=== PATIENT | male | born 1960 | race Caucasian/White ===

== ENCOUNTER 2018-02-26 21:30 | Emergency (ER) | payer BC ==
--- NOTE | 2018-02-26 22:10 | RAD ---
SINGLE VIEW OF THE CHEST: Comparison: 01-08-17 History: Anxiety, hyperventilation. Cough. FINDINGS: Single view of the chest shows a normal sized cardiomediastinal silhouette. The patient is status pos t sternotomy. There is no evidence of consolidation, mass, or pleural effusion. IMPRESSION: No evidence of acute cardiopulmonary disease. POS: [facility]
== END 2018-02-26 23:15 | disposition home or self-care (01) ==
LOC: ERS 21:30
DX: J20.9 Acute bronchitis, unspecified (principal); F43.9 Reaction to severe stress, unspecified
CPT/HCPCS: 71045; 93005; 94640; J7620

== ENCOUNTER 2019-04-29 05:57 | Observation (INO) | payer BC ==
[2019-04-26 09:29] VITALS: BMI 29.2
[2019-04-29 06:29] LABS: #Basophils 0.1 thou/uL (0.0-0.2); #Eosinphils 0.5 thou/uL (0.0-0.7); #Lymphocytes 1.4 thou/uL (1.20-3.40); #Monocytes 0.8 thou/uL (0.11-0.59); #Neutrophils 6.2 thou/uL (1.40-6.50); %Basophils 0.7 % (0.0-1.0); %Eosinophils 5.1 % (0.0-10.0); %Lymphocytes 15.8 % (21.0-51.0); %Neutrophils 69.4 % (42.0-75.0); Mean Corpuscular HGB CONC 34.3 g/dL (32.0-36.0); Mean Corpuscular Hemoglobin 29.2 pg (27.0-31.0); Mean Platelet Volume 8.7 fL (7.4-10.4); Platelet Count 214 thou/uL (130-400); RBC Distribution Width 12.4 % (11.5-14.5); Red Blood Cell (RBC) Count 4.44 mill/uL (4.70-6.10); White Blood Cell (WBC) Count 8.9 thou/uL (4.8-10.8)
[2019-04-29] MEDS ORDERED: Heparin 10,000 UNITS/1 ML VIAL ONE (06:31)
[2019-04-29] MEDS ORDERED: Lidocaine 1% (PF) 30 ML VIAL ONE (06:31)
[2019-04-29 06:51] LABS: ALT (SGPT) 34 U/L (8-55); AST (SGOT) 23 U/L (5-34); Alkaline Phosphatase 84 U/L (40-110); Anion Gap 13 mmol/L (10-20); BUN (Urea Nitrogen) 15 mg/dL (8.4-25.7); Bilirubin, Total 0.3 mg/dL (0.2-1.2); Calc. Creatinine Clearance 86 mL/min (70-130); Calcium 9.4 mg/dL (7.8-10.44); Carbon Dioxide 25 mmol/L (22-29); Cardiac Risk 3.9 (Less than 4.5); Chloride 105 mmol/L (98-107); Cholesterol 150 mg/dl (< 200 Desired); Estimated GFR-MDRD 60; Globulin 2.9 g/dL (2.4-3.5); Glucose 202 mg/dL (70-105); HDL Cholesterol 38 mg/dL (>60 Neg Risk); LDL Cholesterol, Calculated 82 mg/dL; Potassium 4.5 mmol/L (3.5-5.1); Protein, Total 6.9 g/dL (6.0-8.3); Sodium 138 mmol/L (136-145); Triglycerides 150 mg/dL (Less than 150)
[2019-04-29] MEDS ORDERED: Fentanyl 100 MCG/2 ML VIAL ONE (07:01)
[2019-04-29] MEDS ORDERED: Midazolam HCl 2 mg/2 ml Vial ONE ×2 (07:01→11:02)
[2019-04-29] MEDS ORDERED: hydrALAZINE 20 MG/ML VIAL ONE ×3 (07:48→15:07)
[2019-04-29] MEDS ORDERED: Protamine Sulfate 50 MG/5 ML VIAL ONE (07:48)
[2019-04-29] MEDS ORDERED: Sodium Chloride 0.9% 200 ML IV PRN (08:13)
[2019-04-29] MEDS ORDERED: Sodium Chloride 0.9% 1,000 ML IV SCH (08:15)
--- NOTE | 2019-04-29 08:41 | RAD ---
CHEST 1 VIEW: HISTORY: Pre-heart cath evaluation. COMPARISON: 02/26/2018. FINDINGS: Postop midline sternotomy. Stable increased markings in the infrahilar regions. No confluent pneumo gregory, overt edema, or pleural effusion. IMPRESSION: Stable chronic changes in the infrahilar regions and left costophrenic angle from prior exam. No new process. POS: [facility]
[2019-04-29] MEDS ORDERED: Iopamidol 370 76% 100 ML VIAL ONE (09:01)
[2019-04-29] MEDS ORDERED: PROVENTIL INHALER 6.7 G (200 INHALATIONS) INH PRN (09:21)
[2019-04-29] MEDS ORDERED: TRULICITY 0.75 MG SC SCH (09:30)
[2019-04-29] MEDS ORDERED: Metoprolol Tartrate 5 MG/5 ML VIAL ONE (09:34)
[2019-04-29] MEDS ORDERED: Meloxicam 15 MG TAB PO SCH (10:00)
[2019-04-29] MEDS ORDERED: cloNIDine 0.1 MG TAB ONE (16:01)
--- NOTE | 2019-04-29 16:27 | EKG ---
Test Reason : PREOP Blood Pressure : / mmHG Vent. Rate : 077 BPM Atrial Rate : 077 BPM P-R Int : 128 ms QRS Dur : 096 ms QT Int : 408 ms P-R-T Axes : 061 047 049 degrees QTc Int : 461 ms Normal sinus rhythm Minimal voltage criteria for LVH, may be normal variant Nonspecific T wave abnormality Prolonged QT Abnormal ECG When compared with ECG of 26-FEB-2018 21:40, Nonspecific T wave abnormality no longer evident in Anterior leads Confirmed by DR. Percy GARCIA ([id number]) on 04/29/2019 4:27:28 PM Referred By: M[place] Confirmed By:DR. Percy GARCIA
[2019-04-29] MEDS ORDERED: cloNIDine 0.1 MG TAB PO PRN (17:34)
[2019-04-29] MEDS ORDERED: hydrALAZINE 20 MG/ML VIAL SLOW IVP SCH (17:45)
[2019-04-29] MEDS ORDERED: Mometasone/Formoterol 120 PUFF INHALER INH SCH (18:30)
[2019-04-29] MEDS: Sodium Chloride 0.9% 1,000 ML IV SCH (20:01)
[2019-04-29] MEDS: HYDROcodone/Acetaminophen 5/325 mg Tablet PO PRN (20:02)
[2019-04-29] MEDS: glipiZIDE 10 MG TAB PO SCH (20:03)
[2019-04-29] MEDS ORDERED: Atorvastatin Calcium 40 MG TAB PO SCH (21:00)
[2019-04-29] MEDS ORDERED: ADDERALL 30 MG PO SCH (21:00)
[2019-04-29] MEDS ORDERED: busPIRone HCl 5 MG TAB PO PRN (21:17)
[2019-04-30] MEDS: HYDROcodone/Acetaminophen 5/325 mg Tablet PO PRN (00:14)
[2019-04-30 03:32] VITALS: TEMP 99.5
[2019-04-30 05:14] LABS: Anion Gap 11 mmol/L (10-20); BUN (Urea Nitrogen) 16 mg/dL (8.4-25.7); Calc. Creatinine Clearance 93 mL/min (70-130); Calcium 8.6 mg/dL (7.8-10.44); Carbon Dioxide 26 mmol/L (22-29); Chloride 104 mmol/L (98-107); Estimated GFR-MDRD 66; Glucose 165 mg/dL (70-105); Sodium 137 mmol/L (136-145)
[2019-04-30] MEDS: Sodium Chloride 0.9% 1,000 ML IV SCH (06:46)
[2019-04-30] MEDS ORDERED: Aspirin Chewable 81 MG TAB PO SCH (09:00)
[2019-04-30] MEDS ORDERED: Meloxicam 15 MG TAB PO SCH (09:00)
[2019-04-30] MEDS: glipiZIDE 10 MG TAB PO SCH (09:21)
[2019-04-30 10:10] VITALS: BP 144/66
--- NOTE | 2019-05-01 03:14 | DIS ---
DATE OF ADMISSION: 04/29/2019 DATE OF DISCHARGE: 04/30/2019 DISCHARGE DIAGNOSES: 1. Progression of shoshone-paiute disease, especially in the circumflex. 2. Status post coronary artery bypass graft x3 with grafts patent. 3. Status post stent placement in the right coronary artery graft in August 2014, continued patent. 4. History of [id number] myocardial infarction. 5. Hypertension, poorly controlled, with metoprolol increased. 6. Hypercholesterolemia, poorly controlled, with atorvastatin recently increased from 40 to 80. 7. Former smoker, 1 pack per day, stopped 1 month ago. 8. Diabetes mellitus. 9. Noncompliance with medical regimen - not taking aspirin multiple times in the past. 10. Chronic kidney disease - creatinine 1.73, 11 days prior to catheterization; 1.23 on the day of catheterization; and 1.14 the day after the catheterization. DISCHARGE DISPOSITION: The patient will be seen in 2 months with comprehensive metabolic panel and fasting lipid profile. DISCHARGE MEDICATIONS: 1. Metoprolol 100 mg 1-1/2 tablets q.a.m. 2. Albuterol 1 puff q.4 hours p.r.n. 3. Aspirin 81 daily. 4. Atorvastatin 80 mg at bedtime. 5. BuSpar 5 mg b.i.d. p.r.n. 6. Glucotrol 10 mg b.i.d. 7. Hydrocodone p.r.n. 8. Meloxicam 15 mg daily. 9. Protonix 40 mg daily. 10. Dulera 2 puffs b.i.d. 11. Adderall XR 30 mg b.i.d. 12. Trulicity 0.75 mg subcu q.7 days. HOSPITAL COURSE: Mr. Souza had been having increased chest discomfort and had a fixed inferior wall defect on cardiolite scan. He underwent cardiac catheterization, which revealed moderate inferobasal hypokinesis with ejection fraction of 45% to 50%. The left main was normal. The LAD had a 70% proximal stenosis and a 90% mid stenosis. The circumflex had a 90% proximal stenosis and a 90% and 100% mid stenosis. Right coronary artery was totally occluded proximally. Bypass grafts revealed patent COMER to the LAD and patent obtuse marginal graft. The graft to the right coronary artery had a 30% stenosis just proximal to the stent. Due to creatinine of 1.73, 11 days prior to catheterization, he was hydrated overnight with creatinine results as noted above. His metoprolol dose was increased due to elevated pressures. If he continues to have episodes of chest discomfort , consideration should be given to Ranexa since he has significant headaches with nitrates. Job ID: [id number] [facility]TDD
== END 2019-04-30 10:58 | disposition home or self-care (01) ==
LOC: CCL 05:57 → 2SW 08:13
PROVIDERS: ADMIT Internal Medicine Cardiovascular Disease; ATTEND Internal Medicine Cardiovascular Disease
PROC: 4A023N7 Measurement of Cardiac Sampling and Pressure, Left Heart, Percutaneous Approach (ICD-10-PCS; principal; 2019-04-29)
PROC: B2111ZZ Fluoroscopy of Multiple Coronary Arteries using Low Osmolar Contrast (ICD-10-PCS; 2019-04-29)
PROC: B2131ZZ Fluoroscopy of Multiple Coronary Artery Bypass Grafts using Low Osmolar Contrast (ICD-10-PCS; 2019-04-29)
PROC: B2181ZZ Fluoroscopy of Left Internal Mammary Bypass Graft using Low Osmolar Contrast (ICD-10-PCS; 2019-04-29)
DX: I25.10 Atherosclerotic heart disease of native coronary artery without angina pectoris (principal); I25.82 Chronic total occlusion of coronary artery; I25.2 Old myocardial infarction; K21.9 Gastro-esophageal reflux disease without esophagitis; F31.9 Bipolar disorder, unspecified; E78.5 Hyperlipidemia, unspecified; E78.00 Pure hypercholesterolemia, unspecified; J44.9 Chronic obstructive pulmonary disease, unspecified; F17.210 Nicotine dependence, cigarettes, uncomplicated; I12.9 Hypertensive chronic kidney disease with stage 1 through stage 4 chronic kidney disease, or unspecified chronic kidney disease; E11.22 Type 2 diabetes mellitus with diabetic chronic kidney disease; N18.3 Chronic kidney disease, stage 3 (moderate); E66.09 Other obesity due to excess calories; Z68.29 Body mass index [BMI] 29.0-29.9, adult; Z91.14 Patient's other noncompliance with medication regimen; Z79.1 Long term (current) use of non-steroidal anti-inflammatories (NSAID); Z79.82 Long term (current) use of aspirin; Z79.84 Long term (current) use of oral hypoglycemic drugs; Z79.899 Other long term (current) drug therapy; Z88.5 Allergy status to narcotic agent; Z88.8 Allergy status to other drugs, medicaments and biological substances; Z95.1 Presence of aortocoronary bypass graft; Z95.5 Presence of coronary angioplasty implant and graft
CPT/HCPCS: 36415; 71045; 80048; 80053; 80061; 85025; 85347; 93005; 93010; 93459; 94760; 96360; 96361; 99152; 99153; C1769; G0378; J0360; J1644; J2001; J2250; J2720; J3010; Q9967

== ENCOUNTER 2019-07-24 11:26 | Inpatient (IN) | payer BC ==
[2019-07-24] MEDS ORDERED: Morphine 4 MG/ML VIAL ONE (11:53)
[2019-07-24 12:07] LABS: #Eosinphils 0.3 thou/uL (0.0-0.7); #Lymphocytes 1.7 thou/uL (1.20-3.40); #Monocytes 0.7 thou/uL (0.11-0.59); #Neutrophils 6.1 thou/uL (1.40-6.50); %Basophils 0.6 % (0.0-1.0); %Eosinophils 3.2 % (0.0-10.0); %Lymphocytes 19.3 % (21.0-51.0); %Neutrophils 68.9 % (42.0-75.0); Mean Corpuscular HGB CONC 33.6 g/dL (32.0-36.0); Mean Corpuscular Hemoglobin 28.7 pg (27.0-31.0); Mean Corpuscular Volume 85.6 fL (78.0-98.0); Mean Platelet Volume 8.8 fL (7.4-10.4); Platelet Count 258 thou/uL (130-400); RBC Distribution Width 12.8 % (11.5-14.5); Red Blood Cell (RBC) Count 4.53 mill/uL (4.70-6.10); White Blood Cell (WBC) Count 8.8 thou/uL (4.8-10.8)
--- NOTE | 2019-07-24 12:15 | RAD ---
CHEST 1 VIEW: Date: 07/24/2019 HISTORY: Chest pain. COMPARISON: Radiograph dated 04/29/2019. FINDINGS: There is some scarring in the left lung base, similar. No confluent air space consolidation, pneumoth orax, or effusion. Multiple midline sternotomy wires. No acute osseous abnormality. IMPRESSION: No acute intrathoracic abnormality. POS: [facility]
[2019-07-24 12:28] LABS: ALT (SGPT) 22 U/L (8-55); AST (SGOT) 55 U/L (5-34); Alkaline Phosphatase 108 U/L (40-110); Anion Gap 14 mmol/L (10-20); BUN (Urea Nitrogen) 25 mg/dL (8.4-25.7); Bilirubin, Total 0.3 mg/dL (0.2-1.2); Calc. Creatinine Clearance 0 mL/min (70-130); Carbon Dioxide 25 mmol/L (22-29); Chloride 102 mmol/L (98-107); Estimated GFR-MDRD 46; Globulin 3.1 g/dL (2.4-3.5); Glucose 265 mg/dL (70-105); Lipase 61 U/L (8-78); Potassium 4.8 mmol/L (3.5-5.1); Protein, Total 7.1 g/dL (6.0-8.3); Sodium 136 mmol/L (136-145)
[2019-07-24] MEDS ORDERED: Enoxaparin Sodium 60 MG/0.6 ML SYRINGE ONE (13:01)
[2019-07-24] MEDS ORDERED: Enoxaparin Sodium 30 MG/0.3 ML SYRINGE ONE (13:01)
[2019-07-24] MEDS ORDERED: Aspirin Chewable 81 MG TAB ONE (13:01)
[2019-07-24 13:07] LABS: CKMB 59.6 ng/mL (0-6.6)
[2019-07-24] MEDS ORDERED: Nitroglycerin 0.4 MG TAB (25 Tab Bottle) SL PRN (13:11)
[2019-07-24 13:50] LABS: Hemoglobin 13.2 g/dL (14.0-18.0); Platelet Count 245 thou/uL (130-400)
[2019-07-24 15:04] LABS: Troponin I 9.131 ng/mL (< 0.028)
[2019-07-24 16:29] VITALS: BMI 29.0
[2019-07-24] MEDS: Morphine 2 MG/ML SYRINGE SLOW IVP PRN ×7 (16:48→23:13)
[2019-07-24] MEDS: Heparin 25,000 units/D5W 500 ML IVPB SCH (17:37)
[2019-07-24] MEDS: Heparin 10,000 UNITS/ 10 ML VIAL SLOW IVP SCH (17:37)
[2019-07-24 18:26] LABS: Troponin I 13.121 ng/mL (< 0.028)
[2019-07-24] MEDS ORDERED: Clopidogrel Bisulfate 300 MG TAB PO SCH (19:45)
[2019-07-24] MEDS: Atorvastatin Calcium 40 MG TAB PO SCH (20:37)
[2019-07-24] MEDS: Metoprolol Tartrate 25 MG TAB PO SCH (20:37)
[2019-07-25] MEDS: Heparin 10,000 UNITS/ 10 ML VIAL SLOW IVP SCH (00:43)
--- NOTE | 2019-07-25 01:56 | HP ---
CHIEF COMPLAINT: Chest pain. HISTORY OF PRESENT ILLNESS: The patient is a 59-year-old male with past medical history of coronary artery disease, status post stenting and CABG, hyperlipidemia, and hypertension, who presented to the hospital with complaints of left-sided severe chest pain radiating to his neck and both shoulders that started 2 days ago and resolved spontaneously before returning again today. The patient stated that his pain is severe and persistent and associated with some shortness of breath. Denies nausea or vomiting. In the ER, EKG did not show any ST elevations, but the initial troponin was found to be elevated at 5, subsequent troponins continue to trend up. The patient was then admitted to the hospital for management of N-STEMI. REVIEW OF SYSTEMS: Negative except as noted in HPI. PAST MEDICAL HISTORY: As noted above. PAST SURGICAL HISTORY: Appendectomy, stent placement, CABG, back surgeries. SOCIAL HISTORY: The patient denies alcohol use, illicit drug use, but he is an every day smoker. FAMILY HISTORY: Noncontributory. PHYSICAL EXAMINATION: GENERAL: The patient is alert and oriented. Appears to be in distress due to pain. HEENT: Head is normocephalic and atraumatic. Extraocular muscles are intact. NECK: Supple. CHEST: Clear to auscultation bilaterally. CARDIOVASCULAR: Revealed normal S1, normal S2. Regular rate and rhythm. No murmurs, rubs, or gallops. ABDOMEN: Soft, nontender, nondistended. Bowel sounds are audible. NEUROLOGIC: Revealed normal cranial nerves 2 through 12 and normal sensory and muscle examination. ASSESSMENT: 1. Non-ST elevation myocardial infarction. 2. Hypertension. 3. Hyperlipidemia. 4. History of smoking. 5. History of emphysema. 6. The patient will be admitted to telemetry. 7. He was given high-dose aspirin in the ER. This will be continued. 8. High-intensity statin will be initiated. 9. Metoprolol 25 mg orally twice daily. 10. Morphine 2 mg IV as needed for pain. 11. The patient is refusing nitroglycerin. 12. Heparin drip per ACS protocol. 13. Cardiology consultation. 14. Plavix is not being initiated at this time in case the patient will require surgery. Job ID: [id number]
--- NOTE | 2019-07-25 02:08 | CON ---
DATE OF CONSULTATION: HISTORY OF PRESENT ILLNESS: Harley Menjivar is a 59-year-old white male, I have followed him since March 2004. In July 2001, he had a "massive heart attack." He was treated at [facility] in [place]. Apparently, a stent was placed. He was relatively pain free until March 2004 when he started to have pain on the upper left side of his chest that radiated to his left shoulder and across the upper part of his chest and somewhat down to his right arm into his back. The pain would occur at rest or with exertion. He typically notice this if he is carrying something such as 2 x 4s. The pain would last 15 to 20 minutes. He had an episode that lasted for 30 minutes and went to the hospital in [facility]. Serial EKGs and cardiac enzymes were unremarkable. This was over the weekend and he was instructed to stay until the following Monday for treadmill test. However, he decided he did not wish to stay. He then again had a more intense episode and came to the emergency room at [facility]. He underwent left heart catheterization, which revealed severe inferobasal hypokinesis with global hypokinesis and an ejection fraction of 35% to 40%. The left main was normal. The LAD had a 99% proximal stenosis. The circumflex had a 99% mid stenosis. The right coronary artery had a proximal to mid stent, which had no restenosis. Just distal to the stent, there was a 60% to 70 % stenosis. It was recommended that he undergo CABG. On April 06, 2004, he underwent CABG x3 with COMER to the LAD, saphenous vein graft to the obtuse marginal and to the right coronary artery by Dr. Gutiérrez. He was extubated on the table and kept in intensive care one additional day. Approximately six weeks later, he was seen in the office. An echocardiogram at that time revealed ejection fraction of 40% to 45%. He was supposed to come back for followup 1 year later; however, he was not seen again until September 2007. He has been having chest discomfort for 3 to 4 days and was seen in the emergency room by Dr. Guerra. Echo revealed ejection fraction of 55% to 60% with mild tricuspid regurgitation and some element of diastolic dysfunction. He underwent adenosine stress test, which was suboptimal because of significant patient motion. However, there was no evidence of reversible ischemia identified. He was supposed to follow up one month after that discharge in September 2007. However, he was not seen again until May 2008 when he presented to the emergency room with complaints of chest pain that started the day before. It was recommended that he undergo Cardiolite treadmill testing; however, he signed out AMA. He returned in September 2008, complaining of chest discomfort for 1 week. He underwent cardiac catheterization and bypass grafts were patent and there was no significant change in his anatomy. He had been noncompliant with his medications and those were restarted. In August 2011, he returned with sharp chest pain. He underwent repeat catheterization, which again showed the grafts to be patent. He was not seen again until August 2014. He had left chest pressure with multiple recurrent episodes. Cardiac enzymes were unremarkable. He underwent cardiac catheterization, which revealed moderate inferobasal mild anterior hypokinesis with ejection fraction of 45% to 50%. The left main was normal. The LAD had an 80% to 90% proximal stenosis. The circumflex was totally occluded in its midportion. The right coronary artery was totally occluded in its midportion. Bypass grafts revealed patent COMER to the LAD and patent saphenous vein graft to the obtuse marginal. The right coronary artery graft had a 90% stenosis. He underwent placement of a Multi-Link Ultra 5.0 x 38 mm stent with the use of a filter wire. Large amount of atheromatous material was removed from the filter. He was seen in the office twice until December 2014 and I did not see him from that time until October 2018. He stated that at rest he would get tightness in his chest that would last for few minutes and he gets that several times per month. It was recommended that he undergo Lexiscan Cardiolite testing; however, he never did return to have that performed. He was referred by Dr. Tereso Hills again in March 2019. Ten days prior to that, he woke at 3:00 a.m. with his heart beating rapidly, but did not have any chest discomfort. He then agreed to undergo Lexiscan Cardiolite testing. This revealed fixed proximal inferior wall defect. There was a question whether this was restenosis or due to closure of the right coronary artery graft. He then underwent cardiac catheterization on April 29, 2019. This revealed moderate inferobasal hypokinesis with ejection fraction of 45% to 50%. The left main was normal. There was a 70% proximal LAD, 90% mid LAD. There was a new 90 % proximal circumflex lesion, which was a smaller vessel. There was a 90% mid circumflex and total occlusion in the mid circumflex. The right coronary artery was totally occluded in its midportion and had a previous stent in it. Bypass grafts revealed patent COMER to the LAD, vein graft to the distal obtuse marginal. The right coronary graft had a 30% stenosis proximal to the stent, but the stented area continued to show good results. His metoprolol was increased. Mr. Menjivar has been very noncompliant in the past, especially with the aspirin regimen and he continues to smoke. However, he states that he has been taking his medications recently. On July 18, he had 6 to 7 hours of continual chest discomfort that then resolved. He did not have any further problems until last night at 7:00 p.m., when he again had onset of chest discomfort, but no nausea, vomiting, or shortness of breath. The discomfort pretty much lasted approximately 24 hours. He does not have a pleuritic component to the pain. At the present time, he is on intravenous heparin. PAST MEDICAL HISTORY: Myocardial infarction in July 2001, hyperlipidemia, COPD, noncompliance, drug-seeking behavior, bipolar disorder, ADHD, depression, diabetes, and history of Lyme disease. PAST SURGICAL HISTORY: Operations; CABG, placement chest tube post CABG for left pneumothorax. MEDICATIONS: 1. Symbicort two puffs b.i.d. 2. ProAir one puff p.r.n. 3. Aspirin 81 daily. 4. Atorvastatin 80 at bedtime. 5. Buspirone 5 mg b.i.d. 6. Trulicity 0.75 every seven days. 7. Glucotrol 10 mg b.i.d. 8. Mobic 15 mg daily. 9. [place]. 10. Metoprolol 200 mg daily. 11. Protonix 40 daily. ALLERGIES: NITRATES CAUSES INTENSE HEADACHES AND CODEINE. SOCIAL HISTORY: He continues to smoke 1 pack per day. He does not drink. FAMILY HISTORY: Negative for coronary artery disease. REVIEW OF SYSTEMS: A 10-point review of systems is otherwise unremarkable. PHYSICAL EXAMINATION: VITAL SIGNS: Blood pressure 179/88, pulse of 83. HEENT: PERRL. NECK: Supple. CHEST: Clear. CARDIAC: S1 and S2 normal without any S3, S4, or murmurs. ABDOMEN: Normal bowel sounds without tenderness or organomegaly. EXTREMITIES: Revealed no clubbing, cyanosis, or edema. NEUROLOGIC: Grossly intact. SKIN: Warm and dry. LABORATORY DATA: EKG reveals normal sinus rhythm without any acute changes. Hemoglobin 13.0, hematocrit 38.7, white count 8800, platelets 258,000. Sodium 136, potassium 4.8, chloride 102, carbon dioxide 25, BUN 25, creatinine 1.56, CK-MB 59.6, troponin I 13.121. IMPRESSION: 1. Rla-II-[id number] myocardial infarction. From review of his catheterization from three months ago, this is probably due to closure of the 90% proximal circumflex lesion that really was too small to intervene. 2. Status post CABG x3 with the grafts patent three months ago. 3. Status post stent placement in the right coronary artery graft in August 2014. 4. Status post CABG x3 in April 2004. 5. History of myocardial infarction in July 2001. 6. Pneumothorax with chest tube placement, post CABG. 7. Hypertension. 8. Diabetes. 9. Hyperlipidemia, under poor control. 10. Depression. 11. Bipolar disorder. 12. Drug-seeking behavior. 13. Chronic obstructive pulmonary disease. 14. History of noncompliance. At times, he may not take his aspirin for months. 15. Smoker - one pack per day. RECOMMENDATIONS: In review of his cath film from three months ago, I do not feel that he needs repeat catheterization at this time. There are multiple small vessels that could have closed, but are too small for intervention and too diffusely diseased. The most likely closure would be his 90% proximal circumflex lesion. He should be treated medically and will be loaded with Plavix. Also, he will be started on Ranexa. We discussed the need to stop smoking; however, he has continued to smoke for the last 15 years and it is doubtful that he will stop. Job ID: [id number] [facility]
[2019-07-25] MEDS: Morphine 2 MG/ML SYRINGE SLOW IVP PRN ×8 (02:33→20:44)
[2019-07-25] MEDS ORDERED: Albuterol 200 PUFF (6.7GM INHALER) INH PRN (06:06)
[2019-07-25] MEDS: Mometasone 200 MCG/Formoterol 5 MCG 120 PUFF INHALER INH SCH ×2 (06:57→19:30)
[2019-07-25 07:21] LABS: Anion Gap 13 mmol/L (10-20); BUN (Urea Nitrogen) 17 mg/dL (8.4-25.7); Calc. Creatinine Clearance 85 mL/min (70-130); Calcium 9.1 mg/dL (7.8-10.44); Carbon Dioxide 29 mmol/L (22-29); Cardiac Risk 4.5 (Less than 4.5); Chloride 98 mmol/L (98-107); Cholesterol 143 mg/dl (< 200 Desired); Estimated GFR-MDRD 60; Glucose 238 mg/dL (70-105); HDL Cholesterol 32 mg/dL (>60 Neg Risk); LDL Cholesterol, Calculated 81 mg/dL; Potassium 4.6 mmol/L (3.5-5.1); Sodium 135 mmol/L (136-145); Triglycerides 149 mg/dL (Less than 150)
[2019-07-25 07:23] LABS: Hemoglobin 13.1 g/dL (14.0-18.0); Mean Corpuscular HGB CONC 33.5 g/dL (32.0-36.0); Mean Corpuscular Hemoglobin 28.7 pg (27.0-31.0); Mean Corpuscular Volume 85.7 fL (78.0-98.0); Mean Platelet Volume 8.6 fL (7.4-10.4); Platelet Count 230 thou/uL (130-400); RBC Distribution Width 12.9 % (11.5-14.5); Red Blood Cell (RBC) Count 4.56 mill/uL (4.70-6.10); White Blood Cell (WBC) Count 8.5 thou/uL (4.8-10.8)
[2019-07-25 07:24] LABS: Band 1 % (5-11); Eosinophils 3 % (0-10); Lymphocytes 19 % (21-51); MDiff Complete? YES; Monocytes 9 % (0-10); Neutrophil 67 % (42-75); Platelet Morphology Comment Appears Adequate; RBC Morphology Normal
[2019-07-25] MEDS: Metoprolol Tartrate 25 MG TAB PO SCH (08:37)
[2019-07-25] MEDS: Aspirin 325 MG TAB PO SCH (08:37)
[2019-07-25] MEDS: Clopidogrel Bisulfate 75 MG TAB PO SCH (08:37)
[2019-07-25] MEDS ORDERED: Metoprolol Tartrate 50 MG TAB PO SCH (09:30)
--- NOTE | 2019-07-25 12:09 | PDOC.HOSPP ---
- Subjective Encounter Date: 07/25/19 Subjective: Complains of intermittent Chest pain. - Objective Vital Signs & Weight: Vital Signs (12 hours) Temp Pulse Pulse Pulse Resp BP BP 07/25/19 09:15 62 69 132/79 189/85 H 07/25/19 07:31 98.0 F 64 17 07/25/19 04:00 98.7 F 62 18 BP Pulse Ox Pulse Ox Pulse Ox 07/25/19 09:15 97 93 L 07/25/19 07:31 147/73 H 97 07/25/19 04:00 155/72 H 93 L Weight Weight 206 lb 11.2 oz I&O: 07/24/19 07/25/19 07/26/19 06:59 06:59 06:59 Intake Total 2015. Output Total 1100 Balance 915.28 Result Diagrams: 07/25/19 06:47 07/25/19 06:47 Additional Labs: Accuchecks 07/25/19 07/24/19 10:51 20:46 POC Glucose 500 H 352 H Hospitalist ROS - Medication Medications: Active Medications Generic Name Dose Route Start Last Admin Trade Name Freq PRN Reason Stop Dose Admin Aspirin 325 mg 07/25/19 09:00 07/25/19 08:37 Aspirin PO 325 mg DAILY MARGARET Administration Atorvastatin Calcium 40 mg 07/24/19 21:00 07/24/19 20:37 Lipitor PO 40 mg HS MARGARET Administration Clopidogrel Bisulfate 75 mg 07/25/19 09:00 07/25/19 08:37 Plavix PO 75 mg DAILY MARGARET Administration Heparin Sodium (Porcine) 0 units 07/24/19 13:15 07/25/19 00:43 Heparin 1,000 Units/Ml (10 Ml) SLOW IVP 2,828 unit ASDIR MARGARET Administration Protocol Heparin Sodium/Dextrose 500 mls @ 0 mls/hr 07/24/19 13:15 07/24/19 17:37 Heparin 25,000 Units/D5w IVPB 500 mls INF MARGARET Administration Protocol Per Protocol Mometasone Furoate/Formoterol Fumar 2 puff 07/25/19 06:30 07/25/19 06:57 Dulera 200 Mcg/5 Mcg Inhaler INH 2 puff BID-RT MARGARET Administration Morphine Sulfate 2 mg 07/24/19 13:11 07/25/19 10:15 Morphine SLOW IVP 2 mg Q5MIN PRN Administration Chest Pain Ranolazine 500 mg 07/24/19 21:00 07/25/19 08:36 Ranexa PO 500 mg BID MARGARET Administration Sodium Chloride 10 ml 07/25/19 09:00 07/25/19 08:38 Flush - Normal Saline IVF 10 ml Q12HR MARGARET Administration Sodium Chloride 10 ml 07/24/19 21:36 07/25/19 06:06 Flush - Normal Saline IVF 10 ml PRN PRN Administration Saline Flush - Exam General Appearance: NAD, awake alert Neck: supple Heart: RRR Respiratory: normal chest expansion, no tachypnea Extremities: no cyanosis, no clubbing Neurological: cranial nerve grossly intact Hosp A/P (1) NSTEMI (non-ST elevated myocardial infarction) Code(s): I21.4 - NON-ST ELEVATION (NSTEMI) MYOCARDIAL INFARCTION Status: Acute (2) HTN (hypertension) Code(s): I10 - ESSENTIAL (PRIMARY) HYPERTENSION Status: Acute (3) HLD (hyperlipidemia) Code(s): E78.5 - HYPERLIPIDEMIA, UNSPECIFIED Status: Acute (4) Smoking Code(s): F17.200 - NICOTINE DEPENDENCE, UNSPECIFIED, UNCOMPLICATED Status: Acute (5) Diabetes Code(s): E11.9 - TYPE 2 DIABETES MELLITUS WITHOUT COMPLICATIONS Status: Chronic - Plan Non-ST elevation [place]. The patient is not candidate for invasive intervention strategy based on his recent cardiac cath. Medical management will be continued with aspirin, high intensity statin, Plavix , metoprolol, Ranexa, and IV heparin. Heparin will be discontinued after 48 hours.
[2019-07-25] MEDS ORDERED: Dextrose 5% in Water 1,000 ML IV PRN (13:22)
[2019-07-25] MEDS ORDERED: Dextrose 50% Abboject 50 ML SYRINGE SLOW IVP PRN (13:22)
[2019-07-25] MEDS: Heparin 25,000 units/D5W 500 ML IVPB SCH (16:54)
[2019-07-25] MEDS: HumaLOG 300 UNITS/3 ML VIAL SC PRN ×2 (17:00→21:05)
[2019-07-25] MEDS: busPIRone HCl 5 MG TAB PO SCH (20:41)
[2019-07-25] MEDS: Metoprolol Tartrate 100 MG TAB PO SCH (20:42)
[2019-07-26] MEDS: Morphine 2 MG/ML SYRINGE SLOW IVP PRN ×9 (00:56→23:51)
[2019-07-26 05:06] LABS: Anion Gap 10 mmol/L (10-20); BUN (Urea Nitrogen) 18 mg/dL (8.4-25.7); Calc. Creatinine Clearance 73 mL/min (70-130); Calcium 9.1 mg/dL (7.8-10.44); Carbon Dioxide 30 mmol/L (22-29); Chloride 98 mmol/L (98-107); Estimated GFR-MDRD 50; Glucose 315 mg/dL (70-105); Potassium 5.1 mmol/L (3.5-5.1); Sodium 133 mmol/L (136-145)
[2019-07-26 05:17] LABS: Hemoglobin 12.3 g/dL (14.0-18.0); Mean Corpuscular HGB CONC 32.6 g/dL (32.0-36.0); Mean Corpuscular Hemoglobin 28.3 pg (27.0-31.0); Mean Corpuscular Volume 86.7 fL (78.0-98.0); Red Blood Cell (RBC) Count 4.35 mill/uL (4.70-6.10); White Blood Cell (WBC) Count 7.6 thou/uL (4.8-10.8)
[2019-07-26 05:18] LABS: Band 3 % (5-11); Eosinophils 2 % (0-10); Lymphocytes 24 % (21-51); MDiff Complete? YES; Mean Platelet Volume 8.6 fL (7.4-10.4); Monocytes 10 % (0-10); Neutrophil 60 % (42-75); Platelet Count 218 thou/uL (130-400); RBC Distribution Width 12.8 % (11.5-14.5)
[2019-07-26] MEDS: Heparin 10,000 UNITS/ 10 ML VIAL SLOW IVP SCH (05:31)
[2019-07-26] MEDS: HumaLOG 300 UNITS/3 ML VIAL SC PRN ×4 (05:43→21:11)
[2019-07-26] MEDS: Mometasone 200 MCG/Formoterol 5 MCG 120 PUFF INHALER INH SCH ×2 (06:55→18:11)
[2019-07-26] MEDS: Aspirin 325 MG TAB PO SCH (09:25)
[2019-07-26] MEDS: Clopidogrel Bisulfate 75 MG TAB PO SCH (09:25)
[2019-07-26] MEDS: busPIRone HCl 5 MG TAB PO SCH ×2 (09:25→19:58)
[2019-07-26] MEDS: Insulin Glargine 10 UNITS in Pre-Filled Syringe 1 EACH SC SCH (09:25)
[2019-07-26] MEDS: Metoprolol Tartrate 100 MG TAB PO SCH ×2 (09:25→19:59)
[2019-07-26] MEDS: Ezetimibe 10 MG TAB PO SCH (09:25)
[2019-07-26 13:19] LABS: Hemoglobin 12.9 g/dL (14.0-18.0); Platelet Count 240 thou/uL (130-400)
[2019-07-26] MEDS: Heparin 25,000 units/D5W 500 ML IVPB SCH (13:40)
--- NOTE | 2019-07-26 17:52 | PDOC.HOSPP ---
- Subjective Encounter Date: 07/26/19 Subjective: The patient still reporting intermittent chest pain. - Objective Vital Signs & Weight: Vital Signs (12 hours) Temp Pulse Pulse Pulse Resp BP BP 07/26/19 15:20 98.0 F 59 L 20 07/26/19 13:28 58 L 68 163/74 H 166/79 H 07/26/19 11:20 98.0 F 55 L 19 07/26/19 09:19 98.3 F 66 20 07/26/19 08:52 BP Pulse Ox 07/26/19 15:20 151/69 H 97 07/26/19 13:28 07/26/19 11:20 154/70 H 96 07/26/19 09:19 157/75 H 94 L 07/26/19 08:52 94 L Weight Weight 206 lb 4.8 oz I&O: 07/25/19 07/26/19 07/27/19 06:59 06:59 06:59 Intake Total 2015.28 2276.9 Output Total 1100 1700 Balance 915.28 576.9 Result Diagrams: 07/26/19 13:09 07/26/19 04:30 Additional Labs: Accuchecks 07/26/19 07/26/19 07/26/19 16:27 10:40 05:23 POC Glucose 278 H 332 H 276 H 07/25/19 20:37 POC Glucose 407 H Hospitalist ROS - Medication Medications: Active Medications Generic Name Dose Route Start Last Admin Trade Name Freq PRN Reason Stop Dose Admin Atorvastatin Calcium 40 mg 07/24/19 21:00 07/24/19 20:37 Lipitor PO 40 mg HS MARGARET Administration Buspirone HCl 5 mg 07/25/19 21:00 07/26/19 09:25 Buspar PO 5 mg BID MARGARET Administration Clopidogrel Bisulfate 75 mg 07/25/19 09:00 07/26/19 09:25 Plavix PO 75 mg DAILY MARGARET Administration Ezetimibe 10 mg 07/26/19 09:00 07/26/19 09:25 Zetia PO 10 mg DAILY MARGARET Administration Insulin Glargine 10 units/ 0.1 mls @ 0 mls/hr 07/26/19 09:00 07/26/19 09:25 Miscellaneous Medication SC 0.1 mls QAM MARGARET Administration Insulin Human Lispro 0 units 07/25/19 13:22 07/26/19 16:36 Humalog SC 9 unit .AGGRESSIVE SLIDING PRN Administration Aggressive Correctional Scale Metoprolol Tartrate 100 mg 07/25/19 21:00 07/26/19 09:25 Lopressor PO 07/26/19 23:59 100 mg BID MARGARET Administration Mometasone Furoate/Formoterol Fumar 2 puff 07/25/19 06:30 07/26/19 06:55 Dulera 200 Mcg/5 Mcg Inhaler INH 2 puff BID-RT MARGARET Administration Morphine Sulfate 2 mg 07/24/19 13:11 07/26/19 16:35 Morphine SLOW IVP 2 mg Q5MIN PRN Administration Chest Pain Sodium Chloride 10 ml 07/25/19 09:00 07/26/19 09:25 Flush - Normal Saline IVF Not Given Q12HR MARGARET Sodium Chloride 10 ml 07/24/19 21:36 07/26/19 05:20 Flush - Normal Saline IVF 10 ml PRN PRN Administration Saline Flush - Exam General Appearance: awake alert ENT: normocephalic atraumatic Neck: supple, no JVD Heart: RRR Respiratory: normal chest expansion, no tachypnea Gastrointestinal: soft Extremities: no cyanosis, no clubbing, no edema Neurological: cranial nerve grossly intact, no focal deficits Hosp A/P (1) NSTEMI (non-ST elevated myocardial infarction) Code(s): I21.4 - NON-ST ELEVATION (NSTEMI) MYOCARDIAL INFARCTION Status: Acute (2) HTN (hypertension) Code(s): I10 - ESSENTIAL (PRIMARY) HYPERTENSION Status: Acute (3) HLD (hyperlipidemia) Code(s): E78.5 - HYPERLIPIDEMIA, UNSPECIFIED Status: Acute (4) Smoking Code(s): F17.200 - NICOTINE DEPENDENCE, UNSPECIFIED, UNCOMPLICATED Status: Acute (5) Diabetes Code(s): E11.9 - TYPE 2 DIABETES MELLITUS WITHOUT COMPLICATIONS Status: Chronic - Plan Non-ST elevation [place]. The patient is not candidate for invasive intervention strategy based on his recent cardiac cath. Medical management will be continued with aspirin, high intensity statin, Plavix , metoprolol, and Ranexa. IV heparin has been discontinued after 48 hours of initiation. Continue IV morphine for chest pain. The patient is refusing nitrates. Can be discharged tomorrow if cleared by cardiology.
--- NOTE | 2019-07-26 18:53 | PQF ---
DATE: 07-26-19 ATTN: DR. PANCHO HAYWOOD Please exercise your independent, professional judgment in responding to the clarification form. Clinical indicators are provided on the bottom of this form for your review Please check appropriate box(s): [ >] Acute Renal Failure/[place]TON [ ] Insignificant Lab Values [ ] Other diagnosis [ ] Unable to determine In addition, please specify: Present on Admission (POA): [> ] Yes [ ] No [ ] Unable to determine National Kidney Foundation Guidelines for CKD Staging Stage I Kidney damage with normal or increased GFR GFR > 90 Stage II Kidney damage with mildly decreased GFR GFR 60-89 Stage III Kidney damage with moderately decreased GFR GFR 30-59 Stage IV Kidney damage with severely decreased GFR GFR 16-29 Stage V Kidney failure GFR<15 ESRD End Stage Renal Disease On dialysis Acute Renal Failure/Acute Kidney Failure defined as: Increases in SCr by (>) 0.3 mg/dl within 48 hours OR- Increases in SCr by (>) 1.5 times baseline, known or presumed to have occurred within the prior 7 days OR- Urine volume < 0.5 ml/kg/hour for 6 hours (KDIGO supplement 2012 for RIFLE/AMARJIT criteria) For continuity of documentation, please document condition throughout progress notes and discharge summary. Thank You. CLINICAL INDICATORS - SIGNS / SYMPTOMS / LABS / RESULTS AND LOCATION IN MR: GFR: 07-24-19: 46 07-25-19: 60 07-26-19: 50 CREATININE: 07-24-19: 1.56 07-25-19: 1.23 07-26-19: 1.43 BUN: 07-24-19: 25 07-25-19: 17 07-26-19: 18 RISK FACTORS / RESULTS AND LOCATION IN MR: ER NOTES 07-24-19: CODEINE, NITRO CONSULT NOTE DR. WALLACE 07-25-19: HOME MEDS: ASPIRIN PO, NORCO, METOPROLOL , MOBIC, GLUCOTROL TREATMENTS / RESULTS AND LOCATION IN MR: SERIAL LABS MONITORING 07-24-19 TO 07-26-19 (This form is maintained as a part of the permanent medical record) 2014 [employer], [employer]. All Rights Reserved [email or web address]
[2019-07-26] MEDS: Atorvastatin Calcium 40 MG TAB PO SCH (19:59)
[2019-07-26] MEDS ORDERED: Temazepam 15 MG CAP PO PRN (21:39)
[2019-07-27] MEDS: Morphine 2 MG/ML SYRINGE SLOW IVP PRN ×7 (02:00→20:19)
[2019-07-27] MEDS: HumaLOG 300 UNITS/3 ML VIAL SC PRN ×4 (06:01→21:57)
[2019-07-27] MEDS: Mometasone 200 MCG/Formoterol 5 MCG 120 PUFF INHALER INH SCH ×3 (07:00→18:23)
[2019-07-27 08:19] LABS: Hemoglobin 12.6 g/dL (14.0-18.0); Mean Corpuscular HGB CONC 31.2 g/dL (32.0-36.0); Mean Corpuscular Hemoglobin 27.1 pg (27.0-31.0); Mean Corpuscular Volume 86.7 fL (78.0-98.0); Mean Platelet Volume 8.7 fL (7.4-10.4); Platelet Count 248 thou/uL (130-400); RBC Distribution Width 12.6 % (11.5-14.5); Red Blood Cell (RBC) Count 4.65 mill/uL (4.70-6.10); White Blood Cell (WBC) Count 7.6 thou/uL (4.8-10.8)
[2019-07-27 08:30] LABS: Anion Gap 13 mmol/L (10-20); BUN (Urea Nitrogen) 19 mg/dL (8.4-25.7); Calc. Creatinine Clearance 70 mL/min (70-130); Calcium 9.1 mg/dL (7.8-10.44); Carbon Dioxide 27 mmol/L (22-29); Chloride 97 mmol/L (98-107); Estimated GFR-MDRD 48; Glucose 417 mg/dL (70-105); Potassium 4.7 mmol/L (3.5-5.1); Sodium 132 mmol/L (136-145)
[2019-07-27] MEDS: Aspirin 81 mg Enteric Coated Tablet PO SCH (08:34)
[2019-07-27] MEDS: Clopidogrel Bisulfate 75 MG TAB PO SCH (08:34)
[2019-07-27] MEDS: busPIRone HCl 5 MG TAB PO SCH ×2 (08:34→20:18)
[2019-07-27] MEDS: Ezetimibe 10 MG TAB PO SCH (08:34)
[2019-07-27] MEDS: Insulin Glargine 10 UNITS in Pre-Filled Syringe 1 EACH SC SCH (08:47)
[2019-07-27 08:59] LABS: CKMB 2.3 ng/mL (0-6.6)
[2019-07-27] MEDS ORDERED: guaiFENesin ER 600 MG TAB PO SCH (13:30)
--- NOTE | 2019-07-27 13:59 | PDOC.CPN ---
- Subjective Date: 07/27/19 Time: 10:00 Interval history: No overnight events. No new complaints - Review of Systems General: denies: fever/chills, weight/appetite/sleep changes, night sweats, fatigue Respiratory: denies: cough, congestion, shortness of breath, exercise intolerance Cardiovascular: denies: chest pain, palpitation, edema, paroxysmal nocturnal dyspnea, orthopnea Gastrointestinal: denies: nausea, vomiting, diarrhea, constipation, abd pain, GI bleeding Musculoskeletal: denies: pain, tenderness, stiffness, swelling, arthritis/ arthralgias Neurological: denies: numbness, syncope, seizure, weakness - Objective Allergies/Adverse Reactions: Allergies Allergy/AdvReac Type Severity Reaction Status Date / Time codeine Allergy Verified 07/24/19 18:35 nitroglycerin AdvReac migraine Verified 07/24/19 18:35 [From Nitro-Bid] Visit Medications: Current Medications Albuterol Sulfate (Proventil Hfa) 1 puff INH Q6H PRN PRN Reason: SOB or Anxiety Aspirin (Ecotrin) 81 mg PO DAILY [facility] Last Admin: 07/27/19 08:34 Dose: 81 mg Atorvastatin Calcium (Lipitor) 40 mg PO HS [facility] Last Admin: 07/26/19 19:59 Dose: 40 mg Buspirone HCl (Buspar) 5 mg PO BID [facility] Last Admin: 07/27/19 08:34 Dose: 5 mg Clopidogrel Bisulfate (Plavix) 75 mg PO DAILY [facility] Last Admin: 07/27/19 08:34 Dose: 75 mg Dextrose/Water (Dextrose 50%) 25 gm SLOW IVP PRN PRN PRN Reason: Hypoglycemia Ezetimibe (Zetia) 10 mg PO DAILY [facility] Last Admin: 07/27/19 08:34 Dose: 10 mg Glucagon (Glucagon) 1 mg IM PRN PRN PRN Reason: Hypoglycemia Guaifenesin (Mucinex) 600 mg PO BID [facility] Guaifenesin (Mucinex) 600 mg PO NOW [facility] Stop: 07/27/19 15:30 Dextrose/Water (D5w) 1,000 mls @ 0 mls/hr IV .Q0M PRN PRN Reason: Hypoglycemia Insulin Glargine 10 units/ (Miscellaneous Medication) 0.1 mls @ 0 mls/hr SC QAM [facility] Last Admin: 07/27/19 08:47 Dose: 0.1 mls Insulin Human Lispro (Humalog) 0 units SC .AGGRESSIVE SLIDING PRN PRN Reason: Aggressive Correctional Scale Last Admin: 07/27/19 12:45 Dose: 13 unit Insulin Human Lispro (Humalog) 0 units SC .BEDTIME SLIDING SC PRN PRN Reason: Bedtime Correctional Scale Last Admin: 07/26/19 21:11 Dose: 5 unit Metoprolol Succinate (Toprol Xl) 200 mg PO DAILY [facility] Last Admin: 07/27/19 08:34 Dose: 200 mg Mometasone Furoate/Formoterol Fumar (Dulera 200 Mcg/5 Mcg Inhaler) 2 puff INH BID-RT [facility] Last Admin: 07/27/19 07:00 Dose: Not Given Morphine Sulfate (Morphine) 2 mg SLOW IVP Q5MIN PRN PRN Reason: Chest Pain Last Admin: 07/27/19 11:53 Dose: 2 mg Nitroglycerin (Nitrostat) 0.4 mg SL Q5MIN PRN PRN Reason: Chest Pain Ranolazine (Ranexa) 1,000 mg PO BID [facility] Last Admin: 07/27/19 08:33 Dose: 1,000 mg Sodium Chloride (Flush - Normal Saline) 10 ml IVF Q12HR [facility] Last Admin: 07/27/19 10:12 Dose: Not Given Sodium Chloride (Flush - Normal Saline) 10 ml IVF PRN PRN PRN Reason: Saline Flush Last Admin: 07/27/19 04:15 Dose: 10 ml Temazepam (Restoril) 15 mg PO ONE PRN PRN Reason: Insomnia Stop: 07/27/19 21:40 Vital Signs & Weight: Vital Signs Temp Pulse Resp BP BP Pulse Ox 07/27/19 11:51 97.8 F 68 16 159/76 H 07/27/19 08:30 97.9 F 63 16 147/74 H 95 07/27/19 08:00 93 L 07/27/19 04:00 98.0 F 60 20 135/63 93 L Weight 205 lb 14.4 oz - Labs Result Diagrams: 07/27/19 07:58 07/27/19 07:58 Troponin/CKMB CK-MB (CK-2) 2.3 ng/mL (0-6.6) 07/27/19 07:58 Troponin I 6.772 ng/mL (< 0.028) H* 07/27/19 07:58 - Assessment/Plan Assessment/Plan: 1. NSTEMI 2. Hx CABG and PCI in the past/significant CAD 3. Uncontrolled DM 4. Tobacco Abuse 5. Compliance issues No changes to meds at this time. Reviewed notes from [facility]. Medical mgmt only for CAD. 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
--- NOTE | 2019-07-27 16:28 | PDOC.HOSPP ---
- Subjective Encounter Date: 07/27/19 Encounter Time: 09:30 Subjective: The patient states he continues to have chest pain. States it is on the left side and radiates to the right side. No SOB and cough he does feel congested and was able to cough up some phlegm per nursing he had a lot of anxiety after getting albuterol - Objective Vital Signs & Weight: Vital Signs (12 hours) Temp Pulse Resp BP BP Pulse Ox 07/27/19 16:11 97.7 F 60 16 137/74 97 07/27/19 11:51 97.8 F 68 16 159/76 H 07/27/19 08:30 97.9 F 63 16 147/74 H 95 07/27/19 08:00 93 L Weight Weight 205 lb 14.4 oz I&O: 07/26/19 07/27/19 07/28/19 06:59 06:59 06:59 Intake Total 2276.9 1100 Output Total 1700 950 Balance 576.9 150 Result Diagrams: 07/27/19 07:58 07/27/19 07:58 Additional Labs: Accuchecks 07/27/19 07/27/19 07/26/19 11:51 05:51 20:34 POC Glucose 438 H 317 H 375 H 07/26/19 16:27 POC Glucose 278 H Hospitalist ROS - Review of Systems Constitutional: denies: fever, chills - Medication Medications: Active Medications Generic Name Dose Route Start Last Admin Trade Name Freq PRN Reason Stop Dose Admin Aspirin 81 mg 07/27/19 09:00 07/27/19 08:34 Ecotrin PO 81 mg DAILY MARGARET Administration Atorvastatin Calcium 40 mg 07/24/19 21:00 07/26/19 19:59 Lipitor PO 40 mg HS MARGARET Administration Buspirone HCl 5 mg 07/25/19 21:00 07/27/19 08:34 Buspar PO 5 mg BID MARGARET Administration Clopidogrel Bisulfate 75 mg 07/25/19 09:00 07/27/19 08:34 Plavix PO 75 mg DAILY MARGARET Administration Ezetimibe 10 mg 07/26/19 09:00 07/27/19 08:34 Zetia PO 10 mg DAILY MARGARET Administration Insulin Glargine 10 units/ 0.1 mls @ 0 mls/hr 07/26/19 09:00 07/27/19 08:47 Miscellaneous Medication SC 0.1 mls QAM MARGARET Administration Insulin Human Lispro 0 units 07/25/19 13:22 07/27/19 12:45 Humalog SC 13 unit .AGGRESSIVE SLIDING PRN Administration Aggressive Correctional Scale Insulin Human Lispro 0 units 07/25/19 21:04 07/26/19 21:11 Humalog SC 5 unit .BEDTIME SLIDING SC PRN Administration Bedtime Correctional Scale Metoprolol Succinate 200 mg 07/27/19 09:00 07/27/19 08:34 Toprol Xl PO 200 mg DAILY MARGARET Administration Mometasone Furoate/Formoterol Fumar 2 puff 07/25/19 06:30 07/27/19 12:00 Dulera 200 Mcg/5 Mcg Inhaler INH 2 puff BID-RT MARGARET Administration Ranolazine 1,000 mg 07/26/19 21:00 07/27/19 08:33 Ranexa PO 1,000 mg BID MARGARET Administration Sodium Chloride 10 ml 07/25/19 09:00 07/27/19 10:12 Flush - Normal Saline IVF Not Given Q12HR MARGARET Sodium Chloride 10 ml 07/24/19 21:36 07/27/19 04:15 Flush - Normal Saline IVF 10 ml PRN PRN Administration Saline Flush - Exam General Appearance: NAD, awake alert Eye: PERRL, anicteric sclera ENT: normocephalic atraumatic, no oropharyngeal lesions Neck: supple, no JVD Heart: RRR, no murmur, no gallops, no rubs Respiratory: CTAB, no wheezes, no ronchi Respiratory - other findings: mild rales at bases Gastrointestinal: soft, non-tender, non-distended Extremities: no cyanosis, no clubbing, no edema Skin: normal turgor, no lesions, no rashes Neurological: cranial nerve grossly intact, normal sensation to touch, no focal deficits, no new deficit Hosp A/P - Plan This is a 59 year old male with CABG presenting with chest pain likely from NSTEMI NSTEMI - continues to have chest pain intermittently - on max medical therapy with ranolazine 1000 mg bid - he is allergic to nitro/doesn't tolerate it - continue aspirin/statin - troponin down to 6.7 - morphine prn for pain Type II diabetes - blood sugars uncontrolled - will increas lantus to 14 units qam and 10 units qhs - holding oral meds for now Hypertension - continue metoprolol 200 mg daily Poss BURTON vs CKD - creatinine 1.48, fluctuates at baseline Anemia - hb 12, stable Hyponatremia - sodium 132, will monitor
[2019-07-27] MEDS: guaiFENesin ER 600 MG TAB PO SCH (20:18)
[2019-07-27] MEDS: Atorvastatin Calcium 40 MG TAB PO SCH (20:18)
[2019-07-27] MEDS ORDERED: Insulin Glargine 10 UNITS in Pre-Filled Syringe 1 EACH SC SCH (21:00)
[2019-07-27] MEDS: Lorazepam 0.5 MG TAB PO PRN (22:43)
[2019-07-28] MEDS: Morphine 2 MG/ML SYRINGE SLOW IVP PRN ×5 (02:21→21:15)
[2019-07-28 04:39] LABS: Hemoglobin 12.8 g/dL (14.0-18.0); Mean Corpuscular HGB CONC 32.4 g/dL (32.0-36.0); Mean Corpuscular Volume 86.7 fL (78.0-98.0); Mean Platelet Volume 8.8 fL (7.4-10.4); Platelet Count 241 thou/uL (130-400); RBC Distribution Width 12.7 % (11.5-14.5); Red Blood Cell (RBC) Count 4.56 mill/uL (4.70-6.10); White Blood Cell (WBC) Count 9.4 thou/uL (4.8-10.8)
[2019-07-28 04:56] LABS: Anion Gap 13 mmol/L (10-20); BUN (Urea Nitrogen) 25 mg/dL (8.4-25.7); Calc. Creatinine Clearance 66 mL/min (70-130); Calcium 9.2 mg/dL (7.8-10.44); Carbon Dioxide 27 mmol/L (22-29); Chloride 98 mmol/L (98-107); Estimated GFR-MDRD 45; Glucose 316 mg/dL (70-105); Potassium 5.5 mmol/L (3.5-5.1); Sodium 132 mmol/L (136-145)
[2019-07-28 05:04] LABS: Critical Call Chem Troponin I RESULT DECREASING
[2019-07-28 05:22] LABS: CKMB 1.5 ng/mL (0-6.6)
[2019-07-28] MEDS: HumaLOG 300 UNITS/3 ML VIAL SC PRN ×3 (06:08→21:20)
[2019-07-28] MEDS: Mometasone 200 MCG/Formoterol 5 MCG 120 PUFF INHALER INH SCH ×2 (06:50→18:17)
[2019-07-28] MEDS: Amlodipine 5 MG TAB PO SCH (08:17)
[2019-07-28] MEDS: Aspirin 81 mg Enteric Coated Tablet PO SCH (08:18)
[2019-07-28] MEDS: Clopidogrel Bisulfate 75 MG TAB PO SCH (08:19)
[2019-07-28] MEDS: busPIRone HCl 5 MG TAB PO SCH ×2 (08:19→21:14)
[2019-07-28] MEDS: Ezetimibe 10 MG TAB PO SCH (08:20)
[2019-07-28] MEDS: guaiFENesin ER 600 MG TAB PO SCH ×2 (08:20→21:14)
[2019-07-28] MEDS: Sodium Chloride 0.9% 1,000 ML IV SCH ×2 (09:19→21:15)
[2019-07-28] MEDS: Insulin Glargine 14 UNITS in Pre-Filled Syringe 1 EACH SC SCH (09:19)
[2019-07-28] MEDS ORDERED: HumaLOG 300 UNITS/3 ML VIAL SC SCH (11:45)
--- NOTE | 2019-07-28 12:58 | PDOC.CPN ---
- Subjective Date: 07/28/19 Time: 11:30 Interval history: Overall no changes. Intermittent pain, but improved. - Review of Systems General: denies: fever/chills, weight/appetite/sleep changes, night sweats, fatigue Respiratory: denies: cough, congestion, shortness of breath, exercise intolerance Cardiovascular: reports: chest pain Gastrointestinal: denies: nausea, vomiting, diarrhea, constipation, abd pain, GI bleeding Musculoskeletal: denies: pain, tenderness, stiffness, swelling, arthritis/ arthralgias Neurological: denies: numbness, syncope, seizure, weakness - Objective Allergies/Adverse Reactions: Allergies Allergy/AdvReac Type Severity Reaction Status Date / Time codeine Allergy Verified 07/24/19 18:35 nitroglycerin AdvReac migraine Verified 07/24/19 18:35 [From Nitro-Bid] Visit Medications: Current Medications Albuterol Sulfate (Proventil Hfa) 1 puff INH Q6H PRN PRN Reason: SOB or Anxiety Amlodipine Besylate (Norvasc) 5 mg PO DAILY [facility] Last Admin: 07/28/19 08:17 Dose: 5 mg Aspirin (Ecotrin) 81 mg PO DAILY [facility] Last Admin: 07/28/19 08:18 Dose: 81 mg Atorvastatin Calcium (Lipitor) 40 mg PO [facility] Last Admin: 07/27/19 20:18 Dose: 40 mg Buspirone HCl (Buspar) 5 mg PO BID [facility] Last Admin: 07/28/19 08:19 Dose: 5 mg Clopidogrel Bisulfate (Plavix) 75 mg PO DAILY [facility] Last Admin: 07/28/19 08:19 Dose: 75 mg Dextrose/Water (Dextrose 50%) 25 gm SLOW IVP PRN PRN PRN Reason: Hypoglycemia Ezetimibe (Zetia) 10 mg PO DAILY [facility] Last Admin: 07/28/19 08:20 Dose: 10 mg Glucagon (Glucagon) 1 mg IM PRN PRN PRN Reason: Hypoglycemia Guaifenesin (Mucinex) 600 mg PO BID [facility] Last Admin: 07/28/19 08:20 Dose: 600 mg Dextrose/Water (D5w) 1,000 mls @ 0 mls/hr IV .Q0M PRN PRN Reason: Hypoglycemia Insulin Glargine 10 units/ (Miscellaneous Medication) 0.1 mls @ 0 mls/hr SC [facility] Last Admin: 07/27/19 20:18 Dose: 0.1 mls Insulin Glargine 14 units/ (Miscellaneous Medication) 0.14 mls @ 0 mls/hr [facility] Admin: 07/28/19 09:19 Dose: 0.14 mls Sodium Chloride (Normal Saline 0.9%) 1,000 mls @ 100 mls/hr IV .Q10H [facility] Last Admin: 07/28/19 09:19 Dose: 1,000 mls Insulin Human Lispro (Humalog) 0 units SC .AGGRESSIVE SLIDING PRN PRN Reason: Aggressive Correctional Scale Last Admin: 07/28/19 06:08 Dose: 13 unit Insulin Human Lispro (Humalog) 0 units SC .BEDTIME SLIDING SC PRN PRN Reason: Bedtime Correctional Scale Last Admin: 07/27/19 21:57 Dose: 5 unit Insulin Human Lispro (Humalog) 15 units SC NOW [facility] Stop: 07/28/19 13:45 Last Admin: 07/28/19 11:57 Dose: 15 unit Lorazepam (Ativan) 0.5 mg PO Q4H PRN PRN Reason: Anxiety Last Admin: 07/27/19 22:43 Dose: 0.5 mg Metoprolol Succinate (Toprol Xl) 200 mg PO DAILY [facility] Last Admin: 07/28/19 08:20 Dose: 200 mg Mometasone Furoate/Formoterol Fumar (Dulera 200 Mcg/5 Mcg Inhaler) 2 puff INH BID-RT [facility] Last Admin: 07/28/19 06:50 Dose: 2 puff Morphine Sulfate (Morphine) 2 mg SLOW IVP Q4H PRN PRN Reason: SOB or Anxiety Last Admin: 07/28/19 12:38 Dose: 2 mg Nitroglycerin (Nitrostat) 0.4 mg SL Q5MIN PRN PRN Reason: Chest Pain Ranolazine (Ranexa) 1,000 mg PO BID [facility] Last Admin: 07/28/19 08:21 Dose: 1,000 mg Sodium Chloride (Flush - Normal Saline) 10 ml IVF Q12HR [facility] Last Admin: 07/28/19 08:21 Dose: 10 ml Sodium Chloride (Flush - Normal Saline) 10 ml IVF PRN PRN PRN Reason: Saline Flush Last Admin: 07/27/19 04:15 Dose: 10 ml Vital Signs & Weight: Vital Signs Temp Pulse Resp BP BP BP Pulse Ox 07/28/19 11:24 97.9 F 66 19 146/79 H 97 07/28/19 08:17 66 157/75 H 07/28/19 08:16 97.2 F L 66 16 157/75 H 96 07/28/19 04:00 98 F 57 L 18 154/68 H 94 L Weight 209 lb 4.8 oz - Physical Exam General: alert & oriented x3, appears well HEENT: mucus membranes moist Neck: supple neck Cardiac: regular rate, regular rhythm Lungs: clear to auscultation, normal exam Neuro: grossly intact Abdomen: active bowel sounds, soft, non-tender Extremities: no edema Musculoskeletal: no pain - Labs Result Diagrams: 07/28/19 04:13 07/28/19 04:13 Troponin/CKMB CK-MB (CK-2) 1.5 ng/mL (0-6.6) 07/28/19 04:13 Troponin I 5.927 ng/mL (< 0.028) H* 07/28/19 04:13 - Assessment/Plan Assessment/Plan: 1. NSTEMI 2. 1. NSTEMI 2. Severe CAD s/p previous CABG and PCI 3. Tobacco Abuse 4. Hx noncompliance Continue current medications. Hopefully home soon. [facility] to resume care tomorrow.
--- NOTE | 2019-07-28 15:47 | PDOC.HOSPP ---
- Subjective Encounter Date: 07/28/19 Encounter Time: 10:30 Subjective: The patient still has some intermittent chest pains on the left side. No SOB. Patient reports not eating that much food because he doesn't like the taste. Advised that family can bring him food. Blood sugars 453 this afternoon. Per nurse, patient ate a [employer] for lunch - Objective Vital Signs & Weight: Vital Signs (12 hours) Temp Pulse Resp BP BP BP Pulse Ox 07/28/19 15:33 98.5 F 61 16 161/75 H 96 07/28/19 11:24 97.9 F 66 19 146/79 H 97 07/28/19 08:17 66 157/75 H 07/28/19 08:16 97.2 F L 66 16 157/75 H 96 07/28/19 04:00 98 F 57 L 18 154/68 H 94 L Weight Weight 209 lb 4.8 oz I&O: 07/27/19 07/28/19 07/29/19 06:59 06:59 06:59 Intake Total 1100 450 Output Total 950 Balance 150 450 Result Diagrams: 07/28/19 04:13 07/28/19 04:13 Additional Labs: Accuchecks 07/28/19 07/28/19 07/27/19 10:46 05:42 20:08 POC Glucose 454 H 377 H 367 H 07/27/19 16:26 POC Glucose 316 H Hospitalist ROS - Review of Systems Constitutional: denies: fever, chills - Medication Medications: Active Medications Generic Name Dose Route Start Last Admin Trade Name Freq PRN Reason Stop Dose Admin Amlodipine Besylate 5 mg 07/28/19 09:00 07/28/19 08:17 Norvasc PO 5 mg DAILY MARGARET Administration Aspirin 81 mg 07/27/19 09:00 07/28/19 08:18 Ecotrin PO 81 mg DAILY MARGARET Administration Atorvastatin Calcium 40 mg 07/24/19 21:00 07/27/19 20:18 Lipitor PO 40 mg HS MARGARET Administration Buspirone HCl 5 mg 07/25/19 21:00 07/28/19 08:19 Buspar PO 5 mg BID MARGARET Administration Clopidogrel Bisulfate 75 mg 07/25/19 09:00 07/28/19 08:19 Plavix PO 75 mg DAILY MARGARET Administration Ezetimibe 10 mg 07/26/19 09:00 07/28/19 08:20 Zetia PO 10 mg DAILY MARGARET Administration Guaifenesin 600 mg 07/27/19 21:00 07/28/19 08:20 Mucinex PO 600 mg BID MARGARET Administration Insulin Glargine 10 units/ 0.1 mls @ 0 mls/hr 07/27/19 21:00 07/27/19 20:18 Miscellaneous Medication SC 0.1 mls HS MARGARET Administration Insulin Glargine 14 units/ 0.14 mls @ 0 mls/hr 07/28/19 09:00 07/28/19 09:19 Miscellaneous Medication SC 0.14 mls QAM MARGARET Administration Sodium Chloride 1,000 mls @ 100 mls/hr 07/28/19 08:30 07/28/19 09:19 Normal Saline 0.9% IV 1,000 mls .Q10H MARGARET Administration Insulin Human Lispro 0 units 07/25/19 13:22 07/28/19 06:08 Humalog SC 13 unit .AGGRESSIVE SLIDING PRN Administration Aggressive Correctional Scale Insulin Human Lispro 0 units 07/25/19 21:04 07/27/19 21:57 Humalog SC 5 unit .BEDTIME SLIDING SC PRN Administration Bedtime Correctional Scale Lorazepam 0.5 mg 07/27/19 21:33 07/27/19 22:43 Ativan PO 0.5 mg Q4H PRN Administration Anxiety Metoprolol Succinate 200 mg 07/27/19 09:00 07/28/19 08:20 Toprol Xl PO 200 mg DAILY MARGARET Administration Mometasone Furoate/Formoterol Fumar 2 puff 07/25/19 06:30 07/28/19 06:50 Dulera 200 Mcg/5 Mcg Inhaler INH 2 puff BID-RT MARGARET Administration Morphine Sulfate 2 mg 07/27/19 16:24 07/28/19 12:38 Morphine SLOW IVP 2 mg Q4H PRN Administration SOB or Anxiety Ranolazine 1,000 mg 07/26/19 21:00 07/28/19 08:21 Ranexa PO 1,000 mg BID MARGARET Administration Sodium Chloride 10 ml 07/25/19 09:00 07/28/19 08:21 Flush - Normal Saline IVF 10 ml Q12HR MARGARET Administration Sodium Chloride 10 ml 07/24/19 21:36 07/27/19 04:15 Flush - Normal Saline IVF 10 ml PRN PRN Administration Saline Flush - Exam General Appearance: NAD, awake alert Eye: PERRL, anicteric sclera ENT: normocephalic atraumatic, no oropharyngeal lesions Neck: no JVD Heart: RRR, no murmur, no gallops, no rubs Respiratory: CTAB, no wheezes, no rales, no ronchi Gastrointestinal: soft, non-tender, non-distended, normal bowel sounds Extremities: no cyanosis, no clubbing, no edema Skin: normal turgor, no lesions, no rashes Neurological: cranial nerve grossly intact, normal sensation to touch Musculoskeletal: normal tone, normal strength, no muscle wasting Psychiatric: normal affect, normal behavior, A&O x 3 Hosp A/P - Plan This is a 59 year old male with CABG presenting with chest pain likely from NSTEMI #[place] - creatinine worsening - started IV fluids #Hyponatremia #Hyperkalemia - potassium 5.5. EKG ordered - kayexelate given - repeat BMP after bowel movement NSTEMI - has chest pain intermittently - on max medical therapy with ranolazine 1000 mg bid - he is allergic to nitro/doesn't tolerate it - continue aspirin/statin - troponin downtrending - morphine prn for pain Type II diabetes - blood sugars uncontrolled. Got 14 units lantus in the morning and 10 units last night. Increase lantus to 14 units qhs - dietary consult for Hypertension - continue metoprolol 200 mg daily Anemia - hb 12, stable Dispo: pending improvement of creatinine, blood sugars
[2019-07-28 18:12] LABS: Anion Gap 11 mmol/L (10-20); BUN (Urea Nitrogen) 25 mg/dL (8.4-25.7); Calc. Creatinine Clearance 68 mL/min (70-130); Calcium 8.9 mg/dL (7.8-10.44); Carbon Dioxide 25 mmol/L (22-29); Chloride 101 mmol/L (98-107); Estimated GFR-MDRD 46; Glucose 316 mg/dL (70-105); Potassium 4.4 mmol/L (3.5-5.1); Sodium 133 mmol/L (136-145)
[2019-07-28] MEDS ORDERED: Insulin Glargine 14 UNITS in Pre-Filled Syringe SC SCH (21:00)
[2019-07-28] MEDS: Atorvastatin Calcium 40 MG TAB PO SCH (21:14)
[2019-07-28] MEDS: Lorazepam 0.5 MG TAB PO PRN (22:41)
[2019-07-29] MEDS: Morphine 2 MG/ML SYRINGE SLOW IVP PRN ×5 (02:00→20:03)
[2019-07-29 04:10] LABS: Hemoglobin 12.2 g/dL (14.0-18.0); Mean Corpuscular HGB CONC 33.8 g/dL (32.0-36.0); Mean Corpuscular Hemoglobin 29.1 pg (27.0-31.0); Mean Corpuscular Volume 86.1 fL (78.0-98.0); Platelet Count 231 thou/uL (130-400); RBC Distribution Width 12.7 % (11.5-14.5); Red Blood Cell (RBC) Count 4.19 mill/uL (4.70-6.10); White Blood Cell (WBC) Count 7.9 thou/uL (4.8-10.8)
[2019-07-29 04:28] LABS: Anion Gap 13 mmol/L (10-20); BUN (Urea Nitrogen) 27 mg/dL (8.4-25.7); Calc. Creatinine Clearance 65 mL/min (70-130); Calcium 8.6 mg/dL (7.8-10.44); Carbon Dioxide 25 mmol/L (22-29); Chloride 101 mmol/L (98-107); Estimated GFR-MDRD 44; Glucose 362 mg/dL (70-105); Potassium 4.9 mmol/L (3.5-5.1); Sodium 134 mmol/L (136-145)
[2019-07-29] MEDS: Sodium Chloride 0.9% 1,000 ML IV SCH ×3 (05:44→21:20)
[2019-07-29] MEDS: HumaLOG 300 UNITS/3 ML VIAL SC PRN ×4 (05:54→21:22)
[2019-07-29] MEDS: Mometasone 200 MCG/Formoterol 5 MCG 120 PUFF INHALER INH SCH ×2 (07:00→18:22)
[2019-07-29] MEDS: busPIRone HCl 5 MG TAB PO SCH ×2 (09:09→19:50)
[2019-07-29] MEDS: Aspirin 81 mg Enteric Coated Tablet PO SCH (09:09)
[2019-07-29] MEDS: guaiFENesin ER 600 MG TAB PO SCH ×2 (09:09→19:50)
[2019-07-29] MEDS: Clopidogrel Bisulfate 75 MG TAB PO SCH (09:09)
[2019-07-29] MEDS: Amlodipine 5 MG TAB PO SCH (09:09)
[2019-07-29] MEDS: Ezetimibe 10 MG TAB PO SCH (09:09)
[2019-07-29] MEDS: Insulin Glargine 14 UNITS in Pre-Filled Syringe 1 EACH SC SCH (09:10)
[2019-07-29] MEDS ORDERED: Amlodipine 5 MG TAB PO SCH (10:30)
[2019-07-29 10:38] LABS: Hemoglobin A1c 8.4 % (4.0-6.0)
[2019-07-29 11:54] LABS: Bacteria/HPF None Seen HPF (None Seen); Bilirubin Negative (Negative); Blood, Urine Negative (Negative); Clarity Clear (Clear); Glucose, Urine (Dipstick) 500 mg/dL (Negative); Leukocyte Negative Leu/uL (Negative); Nitrite Negative (Negative); Protein, Urine (Dipstick) 70 mg/dL (Neg-Trace); RBC/HPF 0-3 HPF (0-3); Squamous Epithelial None Seen HPF (0-3); Urobilinogen Normal mg/dL (Less than 2); WBC/HPF 0-3 HPF (0-3)
[2019-07-29 11:57] LABS: Urine Culture Reflex No No
[2019-07-29 12:08] LABS: Creatinine, Urine 39.23 mg/dL (63-166)
--- NOTE | 2019-07-29 14:19 | ULT ---
Renal sonogram HISTORY: Renal insufficiency. FINDINGS: Right kidney measures up to 9.9 cm length. Exophytic cyst at the inferior pole measures up to 3.2 cm. Smaller cyst at the superior pole. No hydronephrosis. Urinary bladder is unremarkable without stone. Left kidney measures up to 10.6 cm. At the lateral cortex of the superior pole is a lobular hypoechoi c lesion measuring 2.5 cm diameter. No hydronephrosis. IMPRESSION : Abnormality at the superior pole left kidney has a appearance of a solid echogenic mass. Concerning f or neoplasm. Please consider dedicated CT kidneys for better characterization. No evidence of urinary tract obstruction.
[2019-07-29] MEDS: Lorazepam 0.5 MG TAB PO PRN (17:16)
--- NOTE | 2019-07-29 17:37 | PDOC.HOSPP ---
- Subjective Encounter Date: 07/29/19 Encounter Time: 12:00 Subjective: The patient is still getting intermittent chest pain occasionally radiating to jaw. Denies abd pain, hematuria, nausea, vomiting. DM - pt reports getting potatoes, fried food, bread, crackers and whatever cafeteria gives him. REports he has no choice in his food - Objective Vital Signs & Weight: Vital Signs (12 hours) Temp Pulse Resp BP BP Pulse Ox 07/29/19 16:00 98.4 F 60 18 140/69 96 07/29/19 11:30 97.6 F 58 L 16 160/72 H 97 07/29/19 11:29 58 L 160/72 H 07/29/19 09:09 63 150/68 H 07/29/19 09:08 98.2 F 63 16 150/68 H 95 07/29/19 08:00 95 Weight Weight 209 lb 6.4 oz I&O: 07/28/19 07/29/19 07/30/19 06:59 06:59 06:59 Intake Total 450 2460 Output Total 350 Balance 450 2110 Result Diagrams: 07/29/19 03:50 07/29/19 03:50 Additional Labs: Accuchecks 07/29/19 07/29/19 07/28/19 11:03 05:37 20:29 POC Glucose 280 H 356 H 272 H Hospitalist ROS - Review of Systems Constitutional: denies: fever, chills - Medication Medications: Active Medications Generic Name Dose Route Start Last Admin Trade Name Baldevq PRN Reason Stop Dose Admin Aspirin 81 mg 07/27/19 09:00 07/29/19 09:09 Ecotrin PO 81 mg DAILY MARGARET Administration Atorvastatin Calcium 40 mg 07/24/19 21:00 07/28/19 21:14 Lipitor PO 40 mg HS MARGARET Administration Buspirone HCl 5 mg 07/25/19 21:00 07/29/19 09:09 Buspar PO 5 mg BID MARGARET Administration Clopidogrel Bisulfate 75 mg 07/25/19 09:00 07/29/19 09:09 Plavix PO 75 mg DAILY MARGARET Administration Ezetimibe 10 mg 07/26/19 09:00 07/29/19 09:09 Zetia PO 10 mg DAILY MARGARET Administration Guaifenesin 600 mg 07/27/19 21:00 07/29/19 09:09 Mucinex PO 600 mg BID MARGARET Administration Insulin Glargine 14 units/ 0.14 mls @ 0 mls/hr 07/28/19 09:00 07/29/19 09:10 Miscellaneous Medication SC 0.14 mls QAM MARGARET Administration Sodium Chloride 1,000 mls @ 100 mls/hr 07/28/19 08:30 07/29/19 09:10 Normal Saline 0.9% IV 1,000 mls .Q10H MARGARET Administration Insulin Glargine 14 units/ 0.14 mls @ 0 mls/hr 07/28/19 21:00 07/28/19 21:14 Miscellaneous Medication SC 0.14 mls HS MARGARET Administration Insulin Human Lispro 0 units 07/25/19 13:22 07/29/19 17:11 Humalog SC 9 unit .AGGRESSIVE SLIDING PRN Administration Aggressive Correctional Scale Insulin Human Lispro 0 units 07/25/19 21:04 07/28/19 21:20 Humalog SC 3 unit .BEDTIME SLIDING SC PRN Administration Bedtime Correctional Scale Lorazepam 0.5 mg 07/27/19 21:33 07/29/19 17:16 Ativan PO 0.5 mg Q4H PRN Administration Anxiety Metoprolol Succinate 200 mg 07/27/19 09:00 07/29/19 09:09 Toprol Xl PO 200 mg DAILY MARGARET Administration Mometasone Furoate/Formoterol Fumar 2 puff 07/25/19 06:30 07/29/19 07:00 Dulera 200 Mcg/5 Mcg Inhaler INH 2 puff BID-RT MARGARET Administration Morphine Sulfate 2 mg 07/27/19 16:24 07/29/19 15:14 Morphine SLOW IVP 2 mg Q4H PRN Administration SOB or Anxiety Ranolazine 1,000 mg 07/26/19 21:00 07/29/19 09:10 Ranexa PO 1,000 mg BID MARGARET Administration Sodium Chloride 10 ml 07/25/19 09:00 07/29/19 09:10 Flush - Normal Saline IVF Not Given Q12HR MARGARET Sodium Chloride 10 ml 07/24/19 21:36 07/27/19 04:15 Flush - Normal Saline IVF 10 ml PRN PRN Administration Saline Flush - Exam General Appearance: NAD, awake alert Eye: PERRL, anicteric sclera ENT: normocephalic atraumatic, no oropharyngeal lesions Neck: no JVD Heart: RRR, no murmur, no gallops, no rubs Respiratory: CTAB, no wheezes, no rales, no ronchi, no tachypnea Gastrointestinal: soft, non-tender, non-distended, normal bowel sounds Extremities: no cyanosis, no clubbing, no edema Skin: normal turgor, no lesions, no rashes Neurological: cranial nerve grossly intact, normal sensation to touch, no focal deficits, no new deficit Hosp A/P - Plan Renal US: possible kidney neoplasm This is a 59 year old male with CABG presenting with chest pain likely from NSTEMI #[place] - creatinine worsening to 1.6 - continue IV fluids - nephro consulted. UA shows some proteinuria. Renal US shows possible kidney neoplasm. CT renal without contrast ordered for further evaluation NSTEMI - has chest pain intermittently. Received 48 hours of anticoagulation - on max medical therapy with ranolazine 1000 mg bid - he is allergic to nitro/doesn't tolerate it - continue aspirin/statin - cardiology is following Type II diabetes - blood sugars uncontrolled. Got 14 units lantus in the morning and 10 units last night. Increase lantus to 14 units qhs - dietary consult for #Hyponatremia- improved to 134. Continue fluids #Hyperkalemia - resolved Hypertension - continue metoprolol 200 mg daily Anemia - hb 12, stable Dispo: pending improvement of creatinine, blood sugars
[2019-07-29] MEDS: Atorvastatin Calcium 40 MG TAB PO SCH (19:50)
--- NOTE | 2019-07-29 19:58 | CT ---
CT ABDOMEN AND PELVIS WITHOUT CONTRAST: History: Possible renal mass. Comparison: Ultrasound same day. FINDINGS: Renal mass evaluation by noncontrast exam is inadequate. No definite mass is appreciated although a p ost contrast exam is required. Large cyst inferior pole right kidney. No nephroureterolithiasis or hydroureteronephrosis. No evidence of recently passed stone. Fat containing indirect inguinal hernias bilaterally. Small cyst superior pole right kidney. Noncontrast evaluation of the liver, gallbladder, pancreas, spleen are unremarkable. Moderate atheros clerotic plaque of the aorta. No dilated loops of large or small bowel. The appendix is normal. IMPRESSION: 1. Inadequate exam for renal mass evaluation. Dedicated renal protocol CT or MRI is recommended as wa s recommended on the ultrasound of today. No hydroureteronephrosis or nephroureterolithiasis. No seco ndary evidence of recently passed stone. 2. Similar appearance of the mildly prominent right diaphragmatic lymph nodes from the 2017 study. 3. Mild atelectasis left lung base. This is also similar to 2017 exam. 4. Large disc osteophyte complex L5/S1 causing relatively high grade neural foraminal narrowing bilat erally. POS: HOME
[2019-07-29] MEDS ORDERED: Insulin Glargine 18 UNITS in Pre-Filled Syringe 1 EACH SC SCH (21:00)
[2019-07-30] MEDS: Morphine 2 MG/ML SYRINGE SLOW IVP PRN ×5 (00:27→21:21)
[2019-07-30] MEDS: Lorazepam 0.5 MG TAB PO PRN ×2 (03:12→22:24)
[2019-07-30 04:56] LABS: Anion Gap 11 mmol/L (10-20); BUN (Urea Nitrogen) 22 mg/dL (8.4-25.7); Calc. Creatinine Clearance 81 mL/min (70-130); Calcium 8.7 mg/dL (7.8-10.44); Carbon Dioxide 24 mmol/L (22-29); Chloride 103 mmol/L (98-107); Estimated GFR-MDRD 56; Glucose 272 mg/dL (70-105); Potassium 4.3 mmol/L (3.5-5.1); Sodium 134 mmol/L (136-145)
[2019-07-30] MEDS: HumaLOG 300 UNITS/3 ML VIAL SC PRN ×3 (06:06→16:48)
--- NOTE | 2019-07-30 06:08 | CON ---
DATE OF CONSULTATION: 07/29/2019 REASON FOR CONSULTATION: Increase in creatinine. REQUESTING PHYSICIAN: Dr. Amee Angeles. HISTORY OF PRESENT ILLNESS: A 59-year-old male patient with known history of coronary artery disease, status post prior CABG, hypertension, hyperlipidemia, diabetes mellitus, who was admitted on July 23 due to intermittent chest pain. The patient was subsequently found to have acute non-ST elevation myocardial infarction and started on antithrombotic therapy. During the course of hospitalization, the patient has developed progressive increase in creatinine to a peak of 1.62 today, necessitating Nephrology consult. During the course of this hospitalization, patient developed hyperkalemia with peak potassium of 5.5, which was treated with Kayexalate with improvement. The patient denied nausea, vomiting, or diarrhea. He however admitted to poor oral intake as he did not like the food served in the hospital. He also admitted to frequent urination. He denied fever, chills, rigor, leg swelling, or worsening shortness of breath. He continued to have some intermittent chest pain. There has been no contrast study during this hospitalization or use of any nephrotoxic agent. PAST MEDICAL HISTORY: 1. Coronary artery disease, status post CABG. 2. Hyperlipidemia. 3. Diabetes mellitus. 4. Hypertension. 5. Tobacco abuse disorder. 6. Attention deficit hyperactivity disorder. 7. Bipolar disorder. 8. COPD. 9. Noncompliance. PAST SURGICAL HISTORY: 1. CABG. 2. Chest tube placement. 3. Cardiac catheterization. FAMILY HISTORY: Negative for coronary artery disease. SOCIAL HISTORY: Patient continues to smoke about a pack per day. He denied alcohol or recreational drug use. ALLERGIES: NITRATES AND CODEINE. MEDICATIONS: Prior to hospital medications 1. Albuterol HFA q.4 p.r.n. for shortness of breath. 2. Hydrocodone/acetaminophen 5/325 mg q.4 p.r.n. 3. Aspirin 81 mg p.o. daily. 4. Buspirone 5 mg p.o. b.i.d. 5. Trulicity 0.75 mg subcutaneously every 7 days. 6. Meloxicam 15 mg p.o. daily. 7. Metoprolol succinate 200 mg p.o. daily. 8. Protonix 40 mg p.o. daily. 9. Symbicort 2 puffs inhalation b.i.d. 10. Lipitor 80 mg p.o. daily at bedtime. 11. Glipizide 10 mg p.o. b.i.d. REVIEW OF SYSTEMS: 12-point review of system performed was negative other than pertinent positives and negatives included in the history of present illness. PHYSICAL EXAMINATION: VITAL SIGNS: Temperature 98.2, pulse 63, respiratory rate 16, SpO2 of 95% on room air, blood pressure is 150/68. Intake and output in the last 24 hours showed total intake of 2460 with recorded output of 350 mL. GENERAL: Middle-aged male, patient in no obvious distress. Afebrile. Anicteric. Acyanotic. HEENT: Normocephalic, atraumatic. Oral mucosa is moist. NECK: Supple with no JVD. CARDIOVASCULAR: Regular rhythm and rate with normal heart sounds 1 and 2. RESPIRATORY: Good air entry bilaterally with no obvious crackle or rhonchi or use of accessory muscles. GI: Full, soft, nontender, nondistended with normal bowel sounds. EXTREMITIES: Grossly normal looking, atraumatic with no edema or erythema. 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 Cranial nerves 2 through 12 are grossly intact. The patient moves all extremities. DIAGNOSTIC DATA: CBC today showed WBC count of 7.9, hemoglobin of 12.2, MCV of 86.1, platelets of 231. Chemistry showed sodium 134, potassium 4.9, chloride 101, CO2 of 25, BUN 27, creatinine 1.62, glucose 362, calcium 8.6. ASSESSMENT: 1. Acute kidney injury: This is most likely due to hemodynamic factors related to volume depletion from hyperglycemia induced diuretic. The patient has not been receiving any nephrotoxic agent since admission. 2. Hyponatremia: This is pseudohyponatremia, given further that patient has hyperglycemia. Corrected plasma sodium within normal limits. 3. Chronic kidney disease stage 3. Review of medical record showed that baseline creatinine ranges from 1.0 to 1.2. The patient had chronic kidney disease and hypertension as well as coronary artery disease. He also had Mobic as well as home medication. 4. Hypertension: Control is suboptimal. 5. Hyperglycemia and type 2 diabetes. Control is suboptimal. PLAN: 1. We will get urinalysis as well as urine electrolytes to calculate fractional excretion of sodium. 2. We will also get hemoglobin A1c. 3. We will also get ultrasound of the kidneys to assess structural anatomy of both kidneys. 4. We will increase amlodipine to 10 mg daily given suboptimal BP control. 5. Agree with normal saline therapy. 6. The patient advised to avoid NSAIDs. 7. Further treatment to follow depending on hospital course. Many thanks for involving us in the care of this patient. We will follow along with you. Job ID: [id number]
[2019-07-30] MEDS: Mometasone 200 MCG/Formoterol 5 MCG 120 PUFF INHALER INH SCH ×2 (07:17→18:19)
[2019-07-30] MEDS: Sodium Chloride 0.9% 1,000 ML IV SCH ×2 (08:07→21:01)
[2019-07-30] MEDS: Amlodipine 10 MG TAB PO SCH (08:10)
[2019-07-30] MEDS: busPIRone HCl 5 MG TAB PO SCH ×2 (08:11→21:03)
[2019-07-30] MEDS: guaiFENesin ER 600 MG TAB PO SCH ×2 (08:11→21:03)
[2019-07-30] MEDS: Clopidogrel Bisulfate 75 MG TAB PO SCH (08:11)
[2019-07-30] MEDS: Ezetimibe 10 MG TAB PO SCH (08:11)
[2019-07-30] MEDS: Insulin Glargine 14 UNITS in Pre-Filled Syringe 1 EACH SC SCH (08:11)
[2019-07-30] MEDS: Aspirin 81 mg Enteric Coated Tablet PO SCH (08:11)
--- NOTE | 2019-07-30 09:02 | PRG ---
DATE OF SERVICE: 07/30/2019 SERVICE: Nephrology. SUBJECTIVE: A 59-year-old male with known history of coronary artery disease, hypertension, hyperlipidemia, and noncompliance, seen in followup for acute on chronic kidney disease. The patient was initially admitted due to chest pain, which has subsided. Oral intake is improving. OBJECTIVE: VITAL SIGNS: Temperature is 97.8, pulse is 60, respiratory rate is 18, SpO2 of 96% on room air, blood pressure is 152/71. I and O in the last 24 hours showed total intake of 2560 with total output inconclusive. GENERAL: Male patient in no obvious distress. Afebrile. Anicteric. Acyanotic. HEENT: Normocephalic, atraumatic. Oral mucosa is moist. CARDIOVASCULAR: Regular rhythm and rate with normal heart sounds 1 and 2. RESPIRATORY: Fair air entry bilaterally with some transmitted breath sounds. No respiratory distress appreciated. GI: Full, soft, nontender, nondistended with normal bowel sounds. EXTREMITIES: Grossly normal looking atraumatic with no edema or erythema. 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 Cranial nerves 2 through 12 are grossly intact. LABORATORY DATA: BMP today showed sodium 134, potassium 4.3, chloride 105, CO2 of 24, BUN 22, creatinine 1.31, glucose 272, calcium 8.7. Of note, BMP yesterday showed sodium of 134, potassium 4.9, CO2 of 25, chloride 101, BUN 27, creatinine 1.62. IMAGING STUDIES: Renal ultrasound performed yesterday showed a solid echogenic mass at the superior pole of left kidney. No hydronephrosis was noted. CT scan of the abdomen and pelvis without contrast was unable to evaluate the left renal mass extensively due to lack of contrast. ASSESSMENT: 1. Acute kidney injury due to hemodynamic factors related to volume contraction from poor oral intake and osmotic diuresis. Improving with crystalloids. 2. Left renal mass of unclear etiology and significance Renal ultrasound and CT scan without contrast were nondiagnostic. 3. Hypertension: Control is better with increasing amlodipine. 4. Proteinuria: Due to poorly controlled DM 5. CKD stage 3 PLAN: 1. Continue IV fluid for now. Plan on doing CT scan with contrast tomorrow for further evaluation of left renal mass. 2. Continue current antihypertensives. 3. Further treatment to follow depending on hospital course. Job ID: [id number] [facility]
--- NOTE | 2019-07-30 14:41 | PDOC.HOSPP ---
- Subjective Encounter Date: 07/30/19 Encounter Time: 10:00 Subjective: The patient states he is urinating abundantly. No abd pain. Still gets chest pain intermittently but it has improved - Objective Vital Signs & Weight: Vital Signs (12 hours) Temp Pulse Resp BP Pulse Ox 07/30/19 11:18 97.9 F 68 16 145/67 H 95 07/30/19 08:10 70 07/30/19 07:17 61 16 96 07/30/19 07:06 97.8 F 60 18 152/71 H 96 07/30/19 04:00 97.8 F 63 20 130/62 94 L Weight Weight 210 lb I&O: 07/29/19 07/30/19 07/31/19 06:59 06:59 06:59 Intake Total 2460 2560 Output Total 350 300 Balance 2110 2260 Result Diagrams: 07/29/19 03:50 07/30/19 03:49 Additional Labs: Accuchecks 07/30/19 07/30/19 07/29/19 10:47 05:42 19:53 POC Glucose 307 H 262 H 266 H 07/29/19 17:13 POC Glucose 251 H Hospitalist ROS - Review of Systems Constitutional: denies: fever, chills - Medication Medications: Active Medications Generic Name Dose Route Start Last Admin Trade Name Page PRN Reason Stop Dose Admin Amlodipine Besylate 10 mg 07/30/19 09:00 07/30/19 08:10 Norvasc PO 10 mg DAILY MARGARET Administration Aspirin 81 mg 07/27/19 09:00 07/30/19 08:11 Ecotrin PO 81 mg DAILY MARGARET Administration Atorvastatin Calcium 40 mg 07/24/19 21:00 07/29/19 19:50 Lipitor PO 40 mg HS MARGARET Administration Buspirone HCl 5 mg 07/25/19 21:00 07/30/19 08:11 Buspar PO 5 mg BID MARGARET Administration Clopidogrel Bisulfate 75 mg 07/25/19 09:00 07/30/19 08:11 Plavix PO 75 mg DAILY MARGARET Administration Ezetimibe 10 mg 07/26/19 09:00 07/30/19 08:11 Zetia PO 10 mg DAILY MARGARET Administration Guaifenesin 600 mg 07/27/19 21:00 07/30/19 08:11 Mucinex PO 600 mg BID MARGARET Administration Insulin Glargine 14 units/ 0.14 mls @ 0 mls/hr 07/28/19 09:00 07/30/19 08:11 Miscellaneous Medication SC 0.14 mls QAM MARGARET Administration Sodium Chloride 1,000 mls @ 100 mls/hr 07/28/19 08:30 07/30/19 08:07 Normal Saline 0.9% IV 1,000 mls .Q10H MARGARET Administration Insulin Glargine 18 units/ 0.18 mls @ 0 mls/hr 07/29/19 21:00 07/29/19 21:19 Miscellaneous Medication SC 0.18 mls HS MARGARET Administration Insulin Human Lispro 0 units 07/25/19 13:22 07/30/19 11:23 Humalog SC 11 unit .AGGRESSIVE SLIDING PRN Administration Aggressive Correctional Scale Insulin Human Lispro 0 units 07/25/19 21:04 07/29/19 21:22 Humalog SC 3 unit .BEDTIME SLIDING SC PRN Administration Bedtime Correctional Scale Lorazepam 0.5 mg 07/27/19 21:33 07/30/19 03:12 Ativan PO 0.5 mg Q4H PRN Administration Anxiety Metoprolol Succinate 200 mg 07/27/19 09:00 07/30/19 08:12 Toprol Xl PO 200 mg DAILY MARGARET Administration Mometasone Furoate/Formoterol Fumar 2 puff 07/25/19 06:30 07/30/19 07:17 Dulera 200 Mcg/5 Mcg Inhaler INH 2 puff BID-RT MARGARET Administration Morphine Sulfate 2 mg 07/27/19 16:24 07/30/19 11:29 Morphine SLOW IVP 2 mg Q4H PRN Administration SOB or Anxiety Ranolazine 1,000 mg 07/26/19 21:00 07/30/19 08:12 Ranexa PO 1,000 mg BID MARGARET Administration Sodium Chloride 10 ml 07/25/19 09:00 07/30/19 08:12 Flush - Normal Saline IVF Not Given Q12HR MARGARET Sodium Chloride 10 ml 07/24/19 21:36 07/27/19 04:15 Flush - Normal Saline IVF 10 ml PRN PRN Administration Saline Flush - Exam General Appearance: NAD, awake alert Eye: PERRL, anicteric sclera ENT: normocephalic atraumatic, no oropharyngeal lesions Neck: no JVD Heart: RRR, no murmur, no gallops, no rubs Respiratory: CTAB, no wheezes, no rales, no ronchi Gastrointestinal: soft, non-tender, non-distended, normal bowel sounds, no hepatomegaly Extremities: no cyanosis, no clubbing, no edema Skin: normal turgor, no lesions, no rashes Neurological: cranial nerve grossly intact, normal sensation to touch, no focal deficits, no new deficit Musculoskeletal: normal tone, normal strength, no muscle wasting Psychiatric: normal affect, normal behavior, A&O x 3, oriented to time Hosp A/P - Plan Renal US: possible kidney neoplasm This is a 59 year old male with CABG presenting with chest pain likely from NSTEMI #BURTON - creatinine improved to 1.3. Continue IV fluids - nephro consulted. UA shows some proteinuria. Renal US shows possible kidney neoplasm. CT renal without contrast was inadequate. Will repeat CT with contrast tomorrow if creatinine normalizes Type II diabetes - blood sugars improved. Increase lantus to 18 units BID - patient advised to avoid starchy foods but states that is all the cafeteria gives him NSTEMI - has chest pain intermittently. Received 48 hours of anticoagulation - on max medical therapy with ranolazine 1000 mg bid - he is allergic to nitro - likely discharge when BURTON resolves #Hyponatremia- improved to 134. Continue fluids #Hyperkalemia - resolved Hypertension - continue metoprolol 200 mg daily Anemia - hb 12, stable Dispo: pending improvement of creatinine, blood sugars
[2019-07-30] MEDS ORDERED: Insulin Glargine 22 UNITS in Pre-Filled Syringe 1 EACH SC SCH (21:00)
[2019-07-30] MEDS: Atorvastatin Calcium 40 MG TAB PO SCH (21:03)
[2019-07-31] MEDS: HumaLOG 300 UNITS/3 ML VIAL SC PRN ×4 (00:10→17:03)
[2019-07-31] MEDS: Morphine 2 MG/ML SYRINGE SLOW IVP PRN ×2 (01:59→06:23)
[2019-07-31 05:18] LABS: Anion Gap 12 mmol/L (10-20); BUN (Urea Nitrogen) 25 mg/dL (8.4-25.7); Calc. Creatinine Clearance 76 mL/min (70-130); Calcium 9.1 mg/dL (7.8-10.44); Carbon Dioxide 24 mmol/L (22-29); Chloride 105 mmol/L (98-107); Estimated GFR-MDRD 52; Glucose 248 mg/dL (70-105); Sodium 136 mmol/L (136-145)
[2019-07-31] MEDS: Sodium Chloride 0.9% 1,000 ML IV SCH ×3 (06:23→15:07)
[2019-07-31] MEDS: Mometasone 200 MCG/Formoterol 5 MCG 120 PUFF INHALER INH SCH ×2 (06:40→18:07)
[2019-07-31] MEDS: Aspirin 81 mg Enteric Coated Tablet PO SCH (08:29)
[2019-07-31] MEDS: busPIRone HCl 5 MG TAB PO SCH (08:29)
[2019-07-31] MEDS: guaiFENesin ER 600 MG TAB PO SCH (08:29)
[2019-07-31] MEDS: Ezetimibe 10 MG TAB PO SCH (08:29)
[2019-07-31] MEDS: Clopidogrel Bisulfate 75 MG TAB PO SCH (08:29)
[2019-07-31] MEDS: Amlodipine 10 MG TAB PO SCH (08:29)
[2019-07-31] MEDS ORDERED: Insulin Glargine 18 UNITS in Pre-Filled Syringe 1 EACH SC SCH (09:00)
[2019-07-31] MEDS: Lorazepam 0.5 MG TAB PO PRN (09:36)
--- NOTE | 2019-07-31 10:45 | CT ---
CT abdomen and pelvis without and with IV contrast HISTORY: Abnormal sonogram. Renal mass. COMPARISON: 07/29/2019. FINDINGS: Each renal collecting system, ureter, and urinary bladder are decompressed without stone ev ident. Exophytic cyst at the inferior pole of the right kidney measures up to 3.8 cm greatest diameter. A 1.4 cm exophytic cyst projects from the superior pole right kidney. Left kidney has a normal appearance. No solid masses are evident. Dromedary hump along the lateral co rtex likely accounts for the area of perceived abnormality on recent sonogram. No filling defects are evident within the urinary system on the delayed images. Wedge-shaped atelectasis and scarring at the left posterior lung base and mild pleural thickening are stable. Abdominal fat protrudes into bilateral inguinal hernias that do not contain bowel. Gas within a small focal posterior disc protrusion at the lumbosacral junction. Lumbar spine degenera tive changes are also most pronounced at this level, including very severe stenosis of the left neural foramen. Prominent calcification throughout the arterial structures. IMPRESSION : No evidence of left renal mass. Incidental note of right renal cysts Prominent degenerative changes lower lumbar spine including severe stenosis of the left neural forame n. Clinical correlation regarding the left L5 dermatome is required. Infiltrate/brachial scarring at the left posterior lung base, stable. Bilateral fat-containing inguinal hernias. Atherosclerosis.
[2019-07-31] MEDS ORDERED: HYDROcodone/Acetaminophen 5/325 mg Tablet PO PRN (10:48)
[2019-07-31] MEDS ORDERED: Gabapentin 100 MG CAP PO SCH (11:00)
--- NOTE | 2019-07-31 11:16 | PRG ---
DATE OF SERVICE: 07/31/2019 SERVICE: Nephrology. SUBJECTIVE: A 59-year-old male admitted due to chest pain. Nephrology has seen the patient for BURTON. No new problem. Reports feeling better. The patient was found to have an abnormal left renal mass of which is being evaluated with imaging. He is to get CT scan of the abdomen with contrast. OBJECTIVE: VITAL SIGNS: Temperature 97.3, pulse 65, respiratory rate 18, SpO2 of 97% on room air, and blood pressure is 160/77. I and O in the last 24 hours showed total intake of 3874 with total output of 900, though this is thought to be inconclusive. GENERAL: Male patient, in no obvious distress. Afebrile. Anicteric. Acyanotic. HEENT: Normocephalic, atraumatic. Oral mucosa is moist. CARDIOVASCULAR: Regular rhythm and rate with normal heart sounds 1 and 2. RESPIRATORY: Fair air entry bilaterally with no obvious crackle or rhonchi or use of accessory muscles. GI: Full, soft, nontender, nondistended with normal bowel sounds. EXTREMITIES: Grossly normal looking atraumatic with no edema or erythema. 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 DIAGNOSTIC DATA: BMP today showed sodium 136, potassium 5.0, chloride 105, CO2 of 24, BUN 25, creatinine 1.39, glucose 248, and calcium 9.1. Note that the baseline creatinine ranges from 1.1 to 1.3. ASSESSMENT: 1. Acute kidney injury, due to hemodynamic factors related to poor oral intake and hyperglycemia-induced osmotic diuresis. Creatinine has improved closer to baseline with IV fluid therapy. 2. Chronic kidney disease, stage 3: Due to hypertension and diabetes mellitus. 3. Uncontrolled diabetes mellitus with hyperglycemia. 4. Coronary artery disease. 5. Tobacco abuse disorder. 6. Left renal mass. 7. Proteinuria. PLAN: 1. Increase IV fluid therapy in preparation for planned CT scan with contrast. 2. Further treatment to follow depending on review of other CT scan. 3. Will plan on starting RAAS johnathon once renal function stabilizes. Disposition: If imaging is unremarkable, the patient can be discharged from Nephrology point of view to follow up in the office in 1-2 weeks with repeat labs. Many thanks for involving us in the care of this patient. I have discussed care plan with the patient and spouse at the bedside. Job ID: [id number] [facility]ITAL[facility]iv[facility]
[2019-07-31] MEDS: HYDROcodone/Acetaminophen 5/325 mg Tablet PO PRN ×2 (11:31→18:51)
[2019-07-31] MEDS ORDERED: Iopamidol 370 76% 100 ML VIAL ONE (13:10)
[2019-07-31 15:06] VITALS: BP 154/72; TEMP 97.6
--- NOTE | 2019-08-01 08:31 | PQF ---
FRANKI PARADA UMA [id number] CLINICAL DOCUMENTATION CLARIFICATION FORM: POST DISCHARGE Addendum to original discharge summary date: ____ Late entry note date: __ DATE:08/01/2019 ATTN: Amee Angeles Please exercise your independent, professional judgment in responding to the clarification form. Clinical indicators are provided on the bottom of this form for your review Please check appropriate box(s): NSTEMI TYPE: [X ] NSTEMI (LA type I) [ ] NSTEMI due to Demand Ischemia (AMI Type II) [ ] NSTEMI type II due to: Please specify condition: [ ] Other diagnosis [ ] Unable to determine CLINICAL INDICATORS - SIGNS / SYMPTOMS / LABS Laboratory 07/23 CK-MB 59.6, troponin I 7.761; 9.131; 13.121 Vital signs 07/23 BP 170/91, Pulse 68, Resp 20, Temp 97.9 EKG 07/[address] elevation ED notes p3 07/23 Pt reports chest pain that started yesterday and has continues today ED notes p3 07/23 Pain is generalized over chest and radiates to back H&P p1 07/05 Dr Louis complaints of left-sided severe chest pain radiating to his neck and bot shoulders H&P p1 07/05 Dr Louis Non-ST elevation myocardiac infarction RISKS: H&P p1 07/23 59 year-old Male H&P p1 07/23 CAD s/p CABG and cardiac stent H&P p1 07/23 HLD H&P p1 07/23 HTN H&P p1 07/23 Smoker H&P p2 07/23 Emphysema Consult 07/23 DM Consult 07/28 CKD stage 3 TREATMENTS: MAR 07/23 Aspirin Chewable 81 mg oral MAR 07/23 Lipitor 40mg oral MAR 07/23 Plavix 300 mg oral MAR 07/23 IV Hepatic 10 ml MAR 07/23 Nitroglycerin 0.4mg SL Cardiology consult 07/23 Jaun Mahan EKG 07/23 (This form is maintained as a part of the permanent medical record) 2014 [email or web address]. All Rights Reserved [email or web address]
--- NOTE | 2019-08-01 11:47 | DIS ---
DATE OF ADMISSION: 07/24/2019 DATE OF DISCHARGE: 07/31/2019 DISCHARGE DIAGNOSES: 1. NSTEMI. 2. Acute Kidney Injury 3. Type II diabetes 4. Hyponatremia. 5. Hyperkalemia. 6. Hypertension. 7. Anemia. 8. Renal cyst. CONSULTATIONS: 1. Dr. Jaun Christensen with Cardiology 2. Dr. Abi Melvin with Nephrology. PROCEDURES: None. BRIEF HISTORY OF PRESENT ILLNESS: This is a 59-year-old male with a past medical history of hypertension, CAD, and hyperlipidemia, presented to the hospital with left-sided severe chest pain radiating to his neck and both shoulders that started 2 days prior. The patient states that normally it self resolves on its own; however, it was persistent and was not going away. His EKG did not show any ST elevations, but his troponin was elevated at 5. He was admitted to the hospital for further workup. HOSPITAL COURSE: NSTEMI: The patient was treated for an NSTEMI and was treated with anticoagulation for 48 hours. His troponin had peaked at 13 and downtrended to 5.9. The patient still reported intermittent chest pains. Cardiology was consulted and did not do a catheterization because he had 1 done in April, which showed 90% stenosis in his LAD, circumflex, and RCA with patent grafts. He was started on Ranexa while in the hospital and he was also started on Plavix. Upon discharge , he will continue his aspirin, continue Plavix, continue Ranexa and he will follow up with Dr. Christensen in 2 to 3 weeks. He was advised that he can go back to work in a week. He was also prescribed amlodipine 10 mg for hypertension. Acute kidney injury: The patient developed worsening creatinine up to 1.62. He was given IV fluids and his creatinine eventually improved to 1.3 and plateaued at 1.39. He did have a renal ultrasound which showed a questionable neoplasm. Therefore , CT abdomen and pelvis was done, which showed a renal cyst with no other significant pathology. He will follow up with Dr. Abi Melvin in a week with a repeat BMP since he received contrast. He is advised to drink more water on the day of discharge. Type 2 diabetes, uncontrolled: The patient had persistent blood sugars 300 to 400 while in the hospital. The patient was given excessive amounts of starchy foods while in the hospital. He was discharged with his home medication; however, his glipizide was reduced to 5 mg twice daily given his low creatinine clearance of 52. He should follow up with his primary care doctor in a week. Severe sciatica on the left side: CT scan of his abdomen showed severe stenosis particularly around the L5 area. He was advised to follow up with Dr. Duggan in the clinic for a possible steroid injection. The reported that tramadol provided no relief for his pain. 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 DISCHARGE PHYSICAL EXAMINATION: VITAL SIGNS: Temperature 97.6, HR 63, RR 18, O2 saturation 97% on room air, and BP 154/72. GENERAL: The patient is alert, awake, and oriented x3. CVS: Regular rate and rhythm with no murmurs, rubs, or gallops. LUNGS: Clear to auscultation bilaterally. ABDOMEN: Positive bowel sounds, soft, nontender, and nondistended. EXTREMITIES: No edema. The patient does have some pain when lifting up his left leg. PERTINENT LABORATORY DATA: CBC on 07/28: White count 7.9, hemoglobin 12.2, hematocrit 36.0, and platelet count 231. BMP on 07/30: Unremarkable except for creatinine of 1.39. Hemoglobin A1c: 8.4. LFTs: AST 55, ALT 22, and alkaline phosphatase 108. Troponin I on 07/23: 7.7. Troponin I on 07/27: 5.9. Lipid panel: Triglycerides 149, cholesterol 143, LDL 81, HDL 32, and lipase 61. UA on 07/28: Shows serum protein 70 and glucose 500. IMAGING DATA: Renal ultrasound on 07/28: Shows no hydroureteronephrosis. Similar appearance of the mildly prominent right diaphragmatic lymph nodes. Mild atelectasis of left lung base. Large disk osteophyte complex, L5-S1 causing relatively high-grade neuroforaminal narrowing bilaterally. DISCHARGE MEDICATIONS: New Prescriptions 1. Amlodipine 10 mg daily 2. Plavix 75 mg daily 3. Glipizide 5 mg po bid 4. Ranolazine 1000 mg po bid All other home medications were resumed, please refer to discharge worksheet . DISCHARGE CONDITION: The patient should follow up with his PCP in a week. He should follow up with Dr. Olegario Alex in a week for repeat creatinine. He should follow up with Dr. Christensen in 2 to 3 weeks. Job ID: [id number] [facility]
--- NOTE | 2019-08-02 23:31 | EKG ---
Test Reason : Blood Pressure : / mmHG Vent. Rate : 059 BPM Atrial Rate : 059 BPM P-R Int : 148 ms QRS Dur : 094 ms QT Int : 446 ms P-R-T Axes : 056 057 082 degrees QTc Int : 441 ms Sinus bradycardia Otherwise normal ECG When compared with ECG of 24-JUL-2019 12:39, Nonspecific T wave abnormality now evident in Lateral leads Confirmed by Yan VAUGNH ([id number]) on 08/02/2019 11:30:41 PM Referred By: [facility] Confirmed By:Yan VAUGHN
== END 2019-07-31 18:55 | disposition home or self-care (01) | DRG 281 ==
LOC: ERS 11:26 → 2NO 13:08
PROVIDERS: ADMIT Internal Medicine; ATTEND Internal Medicine
DX: I21.4 Non-ST elevation (NSTEMI) myocardial infarction (principal); N17.9 Acute kidney failure, unspecified; E87.1 Hypo-osmolality and hyponatremia; I25.10 Atherosclerotic heart disease of native coronary artery without angina pectoris; E78.5 Hyperlipidemia, unspecified; E78.00 Pure hypercholesterolemia, unspecified; J43.9 Emphysema, unspecified; F90.9 Attention-deficit hyperactivity disorder, unspecified type; F31.9 Bipolar disorder, unspecified; F17.200 Nicotine dependence, unspecified, uncomplicated; E11.22 Type 2 diabetes mellitus with diabetic chronic kidney disease; T50.2X5A Adverse effect of carbonic-anhydrase inhibitors, benzothiadiazides and other diuretics, initial encounter; N18.3 Chronic kidney disease, stage 3 (moderate); E11.65 Type 2 diabetes mellitus with hyperglycemia; I12.9 Hypertensive chronic kidney disease with stage 1 through stage 4 chronic kidney disease, or unspecified chronic kidney disease; D63.1 Anemia in chronic kidney disease; N28.89 Other specified disorders of kidney and ureter; E87.5 Hyperkalemia; E86.9 Volume depletion, unspecified; Z95.1 Presence of aortocoronary bypass graft; Z95.5 Presence of coronary angioplasty implant and graft; I25.2 Old myocardial infarction; Z79.899 Other long term (current) drug therapy; Z79.51 Long term (current) use of inhaled steroids; Z79.1 Long term (current) use of non-steroidal anti-inflammatories (NSAID); Z88.8 Allergy status to other drugs, medicaments and biological substances; Z76.5 Malingerer [conscious simulation]; Z91.14 Patient's other noncompliance with medication regimen; Z79.82 Long term (current) use of aspirin; Z79.84 Long term (current) use of oral hypoglycemic drugs
CPT/HCPCS: 36415; 36416; 71045; 74176; 74178; 76770; 80048; 80053; 80061; 81001; 82553; 82570; 83036; 83690; 84156; 84300; 84484; 84540; 85007; 85025; 85027; 85730; 93005; 93010; 93306; 93798; 94664; 96372; 96374; J1644; J1650; J1815; J2270; Q9967

== ENCOUNTER 2020-10-13 14:46 | Outpatient (CLI) | payer BC ==
[2020-10-14 13:27] LABS: SARS-CoV-2 PCR by NAA Not Detected (NotDetected)
== END 2020-10-13 14:47 | disposition home or self-care (01) ==
LOC: LABBT 14:46
PROVIDERS: ATTEND Family Medicine
DX: Z01.812 Encounter for preprocedural laboratory examination (principal); Z20.822 Contact with and (suspected) exposure to COVID-19
CPT/HCPCS: U0003; U0005

== ENCOUNTER 2020-10-16 08:33 | Outpatient (CLI) | payer BC | END 2020-10-16 08:34 | disposition home or self-care (01) | LOC: RAD 08:33 | PROVIDERS: ATTEND Family Medicine | DX: R13.12 Dysphagia, oropharyngeal phase (principal) | CPT/HCPCS: 74220 ==

== ENCOUNTER 2020-10-22 08:50 | Outpatient (CLI) | payer BC ==
[2020-10-22] MEDS ORDERED: Iopamidol-370 76% 500 ML 1 ML ONE (09:48)
== END 2020-10-22 08:51 | disposition home or self-care (01) ==
LOC: BICCT 08:50
PROVIDERS: ATTEND Physician Assistant Medical
DX: K86.81 Exocrine pancreatic insufficiency (principal); R19.7 Diarrhea, unspecified
CPT/HCPCS: 74177; 82565

== ENCOUNTER 2021-03-13 16:22 | Inpatient (IN) | payer BC ==
[~2021-03-13 16:22] MED LIST: Iopamidol-370 76% 500 ML 1 ML ONE
[2021-03-13 16:42] LABS: #Eosinphils 0.2 thou/uL (0.0-0.7); #Lymphocytes 1.4 thou/uL (1.20-3.40); #Monocytes 0.5 thou/uL (0.11-0.59); #Neutrophils 5.6 thou/uL (1.40-6.50); %Basophils 0.5 % (0.0-1.0); %Eosinophils 2.9 % (0.0-10.0); %Lymphocytes 17.9 % (21.0-51.0); %Neutrophils 72.7 % (42.0-75.0); Mean Corpuscular HGB CONC 34.9 g/dL (32.0-36.0); Mean Corpuscular Hemoglobin 29.1 pg (27.0-31.0); Mean Corpuscular Volume 83.5 fL (78.0-98.0); Mean Platelet Volume 8.7 fL (7.4-10.4); Platelet Count 221 thou/uL (130-400); RBC Distribution Width 12.4 % (11.5-14.5); Red Blood Cell (RBC) Count 5.51 mill/uL (4.70-6.10); White Blood Cell (WBC) Count 7.7 thou/uL (4.8-10.8)
[2021-03-13] MEDS ORDERED: Aspirin Chewable 81 MG TAB ONE (16:43)
[2021-03-13 17:07] LABS: ALT (SGPT) 16 U/L (8-55); AST (SGOT) 13 U/L (5-34); Albumin 3.7 g/dL (3.4-4.8); Alkaline Phosphatase 119 U/L (40-110); Anion Gap 15 mmol/L (10-20); BUN (Urea Nitrogen) 29 mg/dL (8.4-25.7); Bilirubin, Total 0.2 mg/dL (0.2-1.2); CK (CPK) 25 U/L (30-200); Calc. Creatinine Clearance 0 mL/min (70-130); Calcium 9.9 mg/dL (7.8-10.44); Carbon Dioxide 22 mmol/L (23-31); Chloride 98 mmol/L (98-107); Globulin 4.1 g/dL (2.4-3.5); Lipase 127 U/L (8-78); Potassium 4.9 mmol/L (3.5-5.1); Protein, Total 7.8 g/dL (5.8-8.1); Sodium 130 mmol/L (136-145)
[2021-03-13 17:13] LABS: Glucose 681 mg/dL (80-115)
[2021-03-13] MEDS ORDERED: Insulin Regular 300 UNITS/3 ML VIAL ONE (17:39)
[2021-03-13 18:22] LABS: Bacteria/HPF None Seen HPF (None Seen); Bilirubin Negative (Negative); Blood, Urine Negative (Negative); Clarity Clear (Clear); Glucose, Urine (Dipstick) Greater than 1000 mg/dL (Negative); Ketone, Urine Negative (Negative); Leukocyte Negative Leu/uL (Negative); Nitrite Negative (Negative); Protein, Urine (Dipstick) 30 mg/dL (Neg-Trace); RBC/HPF 0-3 HPF (0-3); Squamous Epithelial None Seen HPF (0-3); Urobilinogen Normal mg/dL (Less than 2); WBC/HPF 0-3 HPF (0-3)
[2021-03-13] MEDS ORDERED: Enoxaparin Sodium 100 MG/ML SYRINGE ONE (19:29)
[2021-03-13] MEDS ORDERED: Dextrose 50% Abboject 50 ML SYRINGE SLOW IVP PRN (19:59)
[2021-03-13] MEDS ORDERED: Dextrose 5% in Water 1,000 ML IV PRN (19:59)
[2021-03-13] MEDS ORDERED: HumaLOG 300 UNITS/3 ML VIAL SC PRN (19:59)
[2021-03-13] MEDS ORDERED: Morphine 4 MG/ML VIAL ONE (20:18)
[2021-03-13] MEDS: Morphine 4 MG/ML VIAL SLOW IVP PRN (20:22)
[2021-03-13 20:54] LABS: Troponin I 0.058 ng/mL (< 0.028)
[2021-03-13 21:25] LABS: Actual Bicarbonate (HCO3v) 20 mEq/L (22-28); Analyzer IN Cardio ER; Base Excess -4.7 mEq/L (-2.0 to +3.0); Calcium, Ionized (venous) 1.13 mmol/L (1.16-1.32); Chloride (VBG) 102 mmol/L (98-106); Hemoglobin (Hb) 14.6 g/dL (13.1-17.2); Potassium (VBG) 4.47 mmol/L (3.70-5.30); Sodium 132.1 mmol/L (133-146); pH (venous) 7.35 (7.32-7.43)
[2021-03-13] MEDS: Heparin 5,000 UNITS/ML VIAL SC SCH (21:47)
[2021-03-13] MEDS: Atorvastatin Calcium 40 MG TAB PO SCH (22:30)
[2021-03-13 23:53] LABS: Troponin I Less than 0.010 ng/mL (< 0.028)
[2021-03-14] MEDS ORDERED: Morphine 4 MG/ML VIAL ONE ×3 (00:17→11:16)
[2021-03-14] MEDS: Morphine 4 MG/ML VIAL SLOW IVP PRN ×5 (00:23→21:13)
[2021-03-14] MEDS ORDERED: Ondansetron PF 4 MG/2 ML Vial ONE (02:48)
[2021-03-14] MEDS: Ondansetron PF 4 MG/2 ML Vial IVP PRN (02:51)
[2021-03-14 05:36] LABS: #Eosinphils 0.2 thou/uL (0.0-0.7); #Lymphocytes 1.9 thou/uL (1.20-3.40); #Monocytes 0.6 thou/uL (0.11-0.59); #Neutrophils 3.6 thou/uL (1.40-6.50); %Basophils 0.8 % (0.0-1.0); %Eosinophils 3.9 % (0.0-10.0); %Lymphocytes 29.8 % (21.0-51.0); %Monocytes 8.7 % (0.0-10.0); %Neutrophils 56.8 % (42.0-75.0); Hemoglobin 14.8 g/dL (14.0-18.0); Mean Corpuscular HGB CONC 33.8 g/dL (32.0-36.0); Mean Corpuscular Hemoglobin 28.1 pg (27.0-31.0); Mean Corpuscular Volume 83.1 fL (78.0-98.0); Mean Platelet Volume 8.4 fL (7.4-10.4); Platelet Count 189 thou/uL (130-400); RBC Distribution Width 12.3 % (11.5-14.5); Red Blood Cell (RBC) Count 5.28 mill/uL (4.70-6.10); White Blood Cell (WBC) Count 6.3 thou/uL (4.8-10.8)
[2021-03-14 05:43] LABS: Hemoglobin A1c 10.4 % (4.0-6.0)
[2021-03-14 05:54] LABS: Anion Gap 13 mmol/L (10-20); BUN (Urea Nitrogen) 22 mg/dL (8.4-25.7); Calc. Creatinine Clearance 0 mL/min (70-130); Calcium 9.3 mg/dL (7.8-10.44); Carbon Dioxide 21 mmol/L (23-31); Chloride 104 mmol/L (98-107); Glucose 266 mg/dL (80-115); Potassium 4.4 mmol/L (3.5-5.1); Sodium 134 mmol/L (136-145)
[2021-03-14] MEDS: Aspirin 325 MG TAB PO SCH (09:41)
[2021-03-14] MEDS: Atorvastatin Calcium 40 MG TAB PO SCH (09:43)
[2021-03-14] MEDS ORDERED: Aspirin 325 MG TAB ONE (10:04)
[2021-03-14] MEDS ORDERED: Heparin 10,000 UNITS/ 10 ML VIAL ONE (11:15)
[2021-03-14] MEDS ORDERED: Acetaminophen 325 MG TAB ONE (11:15)
[2021-03-14] MEDS: Acetaminophen 325 MG TAB PO PRN ×2 (11:20→21:12)
[2021-03-14 12:59] VITALS: BMI 28.4
[2021-03-14] MEDS: Heparin 5,000 UNITS/ML VIAL SC SCH ×3 (15:08→21:12)
[2021-03-14] MEDS: glipiZIDE 5 MG TAB PO SCH (17:40)
[2021-03-14] MEDS: HumaLOG 300 UNITS/3 ML VIAL SC PRN (17:44)
[2021-03-14] MEDS ORDERED: FLU VACC QS2021-22(6MOS UP)/PF 60 MCG/0.5 ML SYRINGE IM ONE (18:00)
[2021-03-14] MEDS: Lantus 1000 UNITS/10 ML VIAL SC SCH (21:10)
[2021-03-14] MEDS: busPIRone HCl 5 MG TAB PO SCH (21:12)
[2021-03-14] MEDS ORDERED: Aquaphor 85 GM TUBE TOP PRN (22:50)
[2021-03-15] MEDS: Morphine 4 MG/ML VIAL SLOW IVP PRN ×5 (02:52→23:05)
[2021-03-15] MEDS: Ondansetron PF 4 MG/2 ML Vial IVP PRN ×2 (02:52→23:06)
[2021-03-15] MEDS: Sodium Chloride 0.9% 1,000 ML IV SCH (03:59)
[2021-03-15 05:59] LABS: #Eosinphils 0.2 thou/uL (0.0-0.7); #Lymphocytes 1.6 thou/uL (1.20-3.40); #Monocytes 0.5 thou/uL (0.11-0.59); #Neutrophils 3.8 thou/uL (1.40-6.50); %Basophils 0.6 % (0.0-1.0); %Eosinophils 3.6 % (0.0-10.0); %Lymphocytes 26.3 % (21.0-51.0); %Monocytes 8.5 % (0.0-10.0); %Neutrophils 60.9 % (42.0-75.0); Mean Corpuscular HGB CONC 34.5 g/dL (32.0-36.0); Mean Corpuscular Hemoglobin 28.4 pg (27.0-31.0); Mean Corpuscular Volume 82.2 fL (78.0-98.0); Mean Platelet Volume 8.1 fL (7.4-10.4); Platelet Count 186 thou/uL (130-400); RBC Distribution Width 12.3 % (11.5-14.5); Red Blood Cell (RBC) Count 4.94 mill/uL (4.70-6.10); White Blood Cell (WBC) Count 6.2 thou/uL (4.8-10.8)
[2021-03-15 06:26] LABS: Anion Gap 12 mmol/L (10-20); BUN (Urea Nitrogen) 24 mg/dL (8.4-25.7); Calc. Creatinine Clearance 78 mL/min (70-130); Carbon Dioxide 23 mmol/L (23-31); Chloride 103 mmol/L (98-107); Glucose 260 mg/dL (80-115); Potassium 4.3 mmol/L (3.5-5.1); Sodium 134 mmol/L (136-145)
[2021-03-15] MEDS: Aspirin 325 MG TAB PO SCH (09:02)
[2021-03-15] MEDS: Amlodipine 10 MG TAB PO SCH (09:02)
[2021-03-15] MEDS: glipiZIDE 5 MG TAB PO SCH ×2 (09:02→16:10)
[2021-03-15] MEDS: busPIRone HCl 5 MG TAB PO SCH ×2 (09:03→21:35)
[2021-03-15] MEDS: Heparin 5,000 UNITS/ML VIAL SC SCH ×3 (09:07→21:35)
[2021-03-15] MEDS: HumaLOG 300 UNITS/3 ML VIAL SC PRN ×2 (13:35→18:09)
[2021-03-15] MEDS ORDERED: Guaifenesin DM 100-10/5 ML UDCUP PO PRN (17:45)
[2021-03-15] MEDS: Atorvastatin Calcium 40 MG TAB PO SCH (21:34)
[2021-03-15] MEDS: Lantus 1000 UNITS/10 ML VIAL SC SCH (21:35)
[2021-03-16] MEDS: Morphine 4 MG/ML VIAL SLOW IVP PRN ×2 (04:04→10:29)
[2021-03-16 06:14] LABS: #Eosinphils 0.3 thou/uL (0.0-0.7); #Lymphocytes 1.9 thou/uL (1.20-3.40); #Monocytes 0.5 thou/uL (0.11-0.59); #Neutrophils 4.3 thou/uL (1.40-6.50); %Basophils 0.2 % (0.0-1.0); %Lymphocytes 27.2 % (21.0-51.0); %Monocytes 7.3 % (0.0-10.0); %Neutrophils 61.4 % (42.0-75.0); Hemoglobin 14.6 g/dL (14.0-18.0); Mean Corpuscular HGB CONC 35.5 g/dL (32.0-36.0); Mean Corpuscular Hemoglobin 29.3 pg (27.0-31.0); Mean Corpuscular Volume 82.6 fL (78.0-98.0); Mean Platelet Volume 8.2 fL (7.4-10.4); Platelet Count 194 thou/uL (130-400); RBC Distribution Width 12.4 % (11.5-14.5)
[2021-03-16 06:48] LABS: Anion Gap 11 mmol/L (10-20); BUN (Urea Nitrogen) 26 mg/dL (8.4-25.7); Calc. Creatinine Clearance 80 mL/min (70-130); Calcium 9.5 mg/dL (7.8-10.44); Carbon Dioxide 27 mmol/L (23-31); Chloride 102 mmol/L (98-107); Cholesterol 195 mg/dl (< 200 Desired); Glucose 326 mg/dL (80-115); HDL Cholesterol 28 mg/dL (>60 Neg Risk); Potassium 4.4 mmol/L (3.5-5.1); Sodium 136 mmol/L (136-145)
[2021-03-16 07:00] LABS: Triglycerides 436 mg/dL (Less than 150)
[2021-03-16] MEDS: HumaLOG 300 UNITS/3 ML VIAL SC PRN ×2 (07:14→10:38)
[2021-03-16] MEDS: Sodium Chloride 0.9% 1,000 ML IV SCH (07:14)
[2021-03-16] MEDS: Amlodipine 10 MG TAB PO SCH (09:05)
[2021-03-16] MEDS: glipiZIDE 5 MG TAB PO SCH (09:05)
[2021-03-16] MEDS: busPIRone HCl 5 MG TAB PO SCH (09:05)
[2021-03-16] MEDS: Heparin 5,000 UNITS/ML VIAL SC SCH (09:05)
[2021-03-16] MEDS: Aspirin 325 MG TAB PO SCH (09:05)
[2021-03-16 11:57] VITALS: BP 188/81; TEMP 96.2
== END 2021-03-16 15:35 | disposition home or self-care (01) | DRG 177 ==
LOC: ERS 16:22 → ERHOLD 17:51 → 2SE 03-14 12:28
PROVIDERS: ADMIT Internal Medicine; ATTEND Family Medicine
PROC: 8E0ZXY6 Isolation (ICD-10-PCS; principal; 2021-03-13)
DX: U07.1 COVID-19 (principal); J12.82 Pneumonia due to coronavirus disease 2019; I21.4 Non-ST elevation (NSTEMI) myocardial infarction; I13.0 Hypertensive heart and chronic kidney disease with heart failure and stage 1 through stage 4 chronic kidney disease, or unspecified chronic kidney disease; I50.32 Chronic diastolic (congestive) heart failure; N17.9 Acute kidney failure, unspecified; E78.5 Hyperlipidemia, unspecified; E78.00 Pure hypercholesterolemia, unspecified; I25.10 Atherosclerotic heart disease of native coronary artery without angina pectoris; J43.9 Emphysema, unspecified; M54.9 Dorsalgia, unspecified; G89.29 Other chronic pain; F17.210 Nicotine dependence, cigarettes, uncomplicated; E11.65 Type 2 diabetes mellitus with hyperglycemia; E11.22 Type 2 diabetes mellitus with diabetic chronic kidney disease; N18.30 Chronic kidney disease, stage 3 unspecified; Z90.49 Acquired absence of other specified parts of digestive tract; Z88.5 Allergy status to narcotic agent; Z95.1 Presence of aortocoronary bypass graft; Z79.52 Long term (current) use of systemic steroids; Z79.84 Long term (current) use of oral hypoglycemic drugs; Z79.899 Other long term (current) drug therapy; Z79.51 Long term (current) use of inhaled steroids; Z91.14 Patient's other noncompliance with medication regimen
CPT/HCPCS: 36415; 36416; 71045; 71275; 80048; 80053; 80061; 81003; 81015; 82010; 82550; 82805; 83036; 83690; 84484; 85025; 85379; 93005; 93306; 94760; 96372; 96374; J1644; J1650; J1815; J2270; J2405; J7050; Q9967

== ENCOUNTER 2021-07-10 18:48 | Inpatient (IN) | payer BC ==
[2021-07-10 19:10] LABS: #Lymphocytes 1.2 thou/uL (1.20-3.40); #Monocytes 0.6 thou/uL (0.11-0.59); #Neutrophils 14.9 thou/uL (1.40-6.50); %Basophils 0.2 % (0.0-1.0); %Eosinophils 0.2 % (0.0-10.0); %Lymphocytes 7.4 % (21.0-51.0); %Monocytes 3.5 % (0.0-10.0); %Neutrophils 88.8 % (42.0-75.0); Hemoglobin 13.1 g/dL (14.0-18.0); Mean Corpuscular HGB CONC 33.6 g/dL (32.0-36.0); Mean Corpuscular Hemoglobin 29.8 pg (27.0-31.0); Mean Corpuscular Volume 88.7 fL (78.0-98.0); Mean Platelet Volume 8.1 fL (7.4-10.4); Platelet Count 285 thou/uL (130-400); RBC Distribution Width 12.3 % (11.5-14.5); White Blood Cell (WBC) Count 16.7 thou/uL (4.8-10.8)
[2021-07-10] MEDS ORDERED: Aspirin Chewable 81 MG TAB ONE (19:20)
[2021-07-10 19:21] LABS: PTT 29.3 sec (22.9-36.1); Prothrombin Time 13.4 sec (12.0-14.7)
[2021-07-10 19:30] LABS: ALT (SGPT) 12 U/L (8-55); AST (SGOT) 8 U/L (5-34); Albumin 4.2 g/dL (3.4-4.8); Alkaline Phosphatase 110 U/L (40-110); Anion Gap 18 mmol/L (10-20); BUN (Urea Nitrogen) 35 mg/dL (8.4-25.7); Bilirubin, Total 0.2 mg/dL (0.2-1.2); Calc. Creatinine Clearance 0 mL/min (70-130); Calcium 9.3 mg/dL (7.8-10.44); Carbon Dioxide 19 mmol/L (23-31); Chloride 97 mmol/L (98-107); Globulin 2.6 g/dL (2.4-3.5); Lipase 55 U/L (8-78); Magnesium 1.7 mg/dL (1.6-2.6); Potassium 5.1 mmol/L (3.5-5.1); Protein, Total 6.8 g/dL (5.8-8.1); Sodium 129 mmol/L (136-145)
[2021-07-10] MEDS ORDERED: Morphine 4 MG/ML VIAL ONE (19:36)
[2021-07-10 19:38] LABS: Glucose 691 mg/dL (80-115)
[2021-07-10 20:00] LABS: Bacteria/HPF None Seen HPF (None Seen); Bilirubin Negative (Negative); Blood, Urine Negative (Negative); Clarity Clear (Clear); Glucose, Urine (Dipstick) Greater than 1000 mg/dL (Negative); Ketone, Urine Negative (Negative); Leukocyte Negative Leu/uL (Negative); Nitrite Negative (Negative); Protein, Urine (Dipstick) 70 mg/dL (Neg-Trace); RBC/HPF 0-3 HPF (0-3); Squamous Epithelial None Seen HPF (0-3); Urobilinogen Normal mg/dL (Less than 2); WBC/HPF 0-3 HPF (0-3)
[2021-07-10] MEDS ORDERED: Acetaminophen 325 MG TAB PO PRN (21:42)
[2021-07-10] MEDS ORDERED: Ondansetron PF 4 MG/2 ML Vial IVP PRN (21:42)
[2021-07-10] MEDS ORDERED: Dextrose 5% in Water 1,000 ML IV PRN (21:42)
[2021-07-10] MEDS ORDERED: Dextrose 50% Abboject 50 ML SYRINGE SLOW IVP PRN (21:42)
[2021-07-10] MEDS ORDERED: Aspirin 325 MG TAB PO SCH (21:45)
[2021-07-10] MEDS ORDERED: hydrALAZINE 20 MG/ML VIAL SLOW IVP PRN (21:48)
[2021-07-10 21:53] LABS: Actual Bicarbonate (HCO3v) 22 mEq/L (22-28); Analyzer IN Cardio ER; Base Excess -3.6 mEq/L (-2.0 to +3.0); Calcium, Ionized (venous) 1.15 mmol/L (1.16-1.32); Chloride (VBG) 98 mmol/L (98-106); Hemoglobin (Hb) 13.5 g/dL (13.1-17.2); Potassium (VBG) 5.19 mmol/L (3.70-5.30); Sodium 129.2 mmol/L (133-146); pH (venous) 7.35 (7.32-7.43)
[2021-07-10 22:11] VITALS: BMI 29.2
[2021-07-10] MEDS ORDERED: Insulin Glargine 30 UNITS/0.3 ML VIAL SC SCH (22:15)
[2021-07-10] MEDS: Morphine 2 MG/ML VIAL SLOW IVP PRN (22:18)
[2021-07-10 22:21] LABS: Troponin I 0.013 ng/mL (< 0.028)
[2021-07-10] MEDS: Sodium Chloride 0.9% 1,000 ML IV SCH (22:21)
[2021-07-10] MEDS: cefTRIAXone\\ROCEPHIN 1 GM in Sodium Chloride 0.9% 100 ML IVPB SCH (22:22)
[2021-07-10] MEDS: HumaLOG 300 UNITS/3 ML VIAL SC PRN (23:10)
[2021-07-11] MEDS: Morphine 2 MG/ML VIAL SLOW IVP PRN ×5 (02:09→21:07)
[2021-07-11 04:22] LABS: #Lymphocytes 1.6 thou/uL (1.20-3.40); %Eosinophils 0.3 % (0.0-10.0); %Lymphocytes 10.2 % (21.0-51.0); %Monocytes 6.4 % (0.0-10.0); %Neutrophils 83.1 % (42.0-75.0); Hemoglobin 12.7 g/dL (14.0-18.0); Mean Corpuscular HGB CONC 33.6 g/dL (32.0-36.0); Mean Corpuscular Volume 89.2 fL (78.0-98.0); Mean Platelet Volume 8.3 fL (7.4-10.4); Platelet Count 272 thou/uL (130-400); RBC Distribution Width 12.3 % (11.5-14.5); Red Blood Cell (RBC) Count 4.24 mill/uL (4.70-6.10); White Blood Cell (WBC) Count 15.7 thou/uL (4.8-10.8)
[2021-07-11 04:46] LABS: ALT (SGPT) 10 U/L (8-55); AST (SGOT) 7 U/L (5-34); Albumin 3.8 g/dL (3.4-4.8); Alkaline Phosphatase 100 U/L (40-110); Anion Gap 15 mmol/L (10-20); BUN (Urea Nitrogen) 33 mg/dL (8.4-25.7); Bilirubin, Total 0.2 mg/dL (0.2-1.2); Calc. Creatinine Clearance 55 mL/min (70-130); Calcium 9.2 mg/dL (7.8-10.44); Carbon Dioxide 23 mmol/L (23-31); Chloride 98 mmol/L (98-107); Globulin 2.8 g/dL (2.4-3.5); Glucose 475 mg/dL (80-115); Potassium 4.8 mmol/L (3.5-5.1); Protein, Total 6.6 g/dL (5.8-8.1); Sodium 131 mmol/L (136-145)
[2021-07-11] MEDS: Guaifenesin DM 100-10/5 ML UDCUP PO PRN ×2 (05:01→22:27)
[2021-07-11] MEDS: Sodium Chloride 0.9% 1,000 ML IV SCH ×3 (05:02→19:22)
[2021-07-11] MEDS: HumaLOG 300 UNITS/3 ML VIAL SC PRN ×4 (05:04→21:06)
[2021-07-11 07:29] LABS: SARS-CoV-2 NAA Rapid Test Not Detected (NotDetected)
[2021-07-11] MEDS ORDERED: Prevnar 13-Val Conj/PF 0.5 ML SYRINGE IM ONE (09:00)
[2021-07-11] MEDS ORDERED: Regadenoson 0.4 MG/5 ML SYRINGE ONE (09:21)
[2021-07-11] MEDS: Enoxaparin Sodium 40 MG/0.4 ML SYRINGE SC SCH (11:47)
[2021-07-11] MEDS: Aspirin Chewable 81 MG TAB PO SCH (11:48)
[2021-07-11] MEDS: glipiZIDE 5 MG TAB PO SCH ×2 (11:48→17:14)
[2021-07-11] MEDS: Nicotine 21 MG PATCH TD SCH (11:48)
[2021-07-11] MEDS: Clopidogrel Bisulfate 75 MG TAB PO SCH (11:48)
[2021-07-11 12:24] LABS: Creatinine, Urine 23.7 mg/dL (63-166)
[2021-07-11] MEDS ORDERED: Insulin Glargine 30 UNITS/0.3 ML VIAL SC SCH (21:00)
[2021-07-11] MEDS: Atorvastatin Calcium 40 MG TAB PO SCH (21:00)
[2021-07-11] MEDS: Zolpidem Tartrate 5 MG TAB PO PRN (21:03)
[2021-07-11] MEDS: cefTRIAXone\\ROCEPHIN 1 GM in Sodium Chloride 0.9% 100 ML IVPB SCH (21:03)
[2021-07-12] MEDS: Morphine 2 MG/ML VIAL SLOW IVP PRN ×3 (02:25→13:46)
[2021-07-12] MEDS ORDERED: Benzonatate 100 MG CAP PO SCH (02:30)
[2021-07-12] MEDS: Guaifenesin DM 100-10/5 ML UDCUP PO PRN (03:23)
[2021-07-12] MEDS: HumaLOG 300 UNITS/3 ML VIAL SC PRN ×4 (05:18→20:09)
[2021-07-12] MEDS: Sodium Chloride 0.9% 1,000 ML IV SCH (05:18)
[2021-07-12 07:52] LABS: Albumin 3.4 g/dL (3.4-4.8); Anion Gap 12 mmol/L (10-20); BUN (Urea Nitrogen) 27 mg/dL (8.4-25.7); BUN/Creatinine Ratio 21.26; Calc. Creatinine Clearance 79 mL/min (70-130); Calcium 8.7 mg/dL (7.8-10.44); Carbon Dioxide 21 mmol/L (23-31); Chloride 103 mmol/L (98-107); Glucose 255 mg/dL (80-115); Phosphorus 2.7 mg/dL (2.3-4.7); Potassium 4.4 mmol/L (3.5-5.1); Sodium 132 mmol/L (136-145)
[2021-07-12] MEDS ORDERED: Magnesium 2 GM/50 ML(in water) 2 GM in Premix Bag 1 BAG IVPB SCH (08:45)
[2021-07-12] MEDS: Empagliflozin 10 MG TAB PO SCH (09:04)
[2021-07-12] MEDS: Sodium Bicarbonate Tab 325 MG TAB PO SCH ×2 (09:04→20:05)
[2021-07-12] MEDS: glipiZIDE 5 MG TAB PO SCH ×2 (09:05→16:09)
[2021-07-12] MEDS: Aspirin Chewable 81 MG TAB PO SCH (09:05)
[2021-07-12] MEDS: Clopidogrel Bisulfate 75 MG TAB PO SCH (09:05)
[2021-07-12] MEDS: Benzonatate 100 MG CAP PO SCH ×3 (09:05→20:05)
[2021-07-12] MEDS: Nicotine 21 MG PATCH TD SCH (09:06)
[2021-07-12] MEDS: Enoxaparin Sodium 40 MG/0.4 ML SYRINGE SC SCH (09:06)
[2021-07-12] MEDS ORDERED: Nicotine 14 MG PATCH TD PRN (10:35)
[2021-07-12] MEDS ORDERED: guaiFENesin ER 600 MG TAB PO SCH (10:45)
[2021-07-12] MEDS ORDERED: Communication Order-Pharmacy FS SCH (11:00)
[2021-07-12] MEDS ORDERED: Insulin Glargine 30 UNITS/0.3 ML VIAL SC SCH (17:30)
[2021-07-12] MEDS: Budesonide 0.5 MG/2 ML NEB NEB SCH (18:16)
[2021-07-12] MEDS: Atorvastatin Calcium 40 MG TAB PO SCH (20:04)
[2021-07-12] MEDS: Doxycycline 100 MG CAP PO SCH (20:05)
[2021-07-12] MEDS: guaiFENesin ER 600 MG TAB PO SCH (20:05)
[2021-07-12] MEDS: Zolpidem Tartrate 5 MG TAB PO PRN (20:54)
[2021-07-12] MEDS: HYDROcodone/Acetaminophen 5/325 mg Tablet PO PRN (21:18)
[2021-07-12] MEDS: busPIRone HCl 5 MG TAB PO PRN (23:05)
[2021-07-13 05:04] LABS: #Basophils 0.1 thou/uL (0.0-0.2); #Eosinphils 0.2 thou/uL (0.0-0.7); #Lymphocytes 2.2 thou/uL (1.20-3.40); #Monocytes 0.9 thou/uL (0.11-0.59); #Neutrophils 5.6 thou/uL (1.40-6.50); %Basophils 0.6 % (0.0-1.0); %Eosinophils 2.6 % (0.0-10.0); %Lymphocytes 24.8 % (21.0-51.0); %Monocytes 9.7 % (0.0-10.0); %Neutrophils 62.3 % (42.0-75.0); Hemoglobin 13.8 g/dL (14.0-18.0); Mean Corpuscular HGB CONC 32.8 g/dL (32.0-36.0); Mean Corpuscular Hemoglobin 29.2 pg (27.0-31.0); Mean Corpuscular Volume 89.1 fL (78.0-98.0); Mean Platelet Volume 7.9 fL (7.4-10.4); Platelet Count 282 thou/uL (130-400); RBC Distribution Width 12.4 % (11.5-14.5); Red Blood Cell (RBC) Count 4.72 mill/uL (4.70-6.10)
[2021-07-13 05:30] LABS: Albumin 3.6 g/dL (3.4-4.8); Anion Gap 12 mmol/L (10-20); BUN (Urea Nitrogen) 34 mg/dL (8.4-25.7); BUN/Creatinine Ratio 23.61; Calc. Creatinine Clearance 70 mL/min (70-130); Calcium 9.3 mg/dL (7.8-10.44); Carbon Dioxide 26 mmol/L (23-31); Cardiac Risk 3.6 (Less than 4.5); Chloride 100 mmol/L (98-107); Cholesterol 145 mg/dl (< 200 Desired); Glucose 197 mg/dL (80-115); HDL Cholesterol 40 mg/dL (>60 Neg Risk); LDL Cholesterol, Calculated 79 mg/dL; Magnesium 2.2 mg/dL (1.6-2.6); Potassium 4.3 mmol/L (3.5-5.1); Sodium 134 mmol/L (136-145); Triglycerides 128 mg/dL (Less than 150)
[2021-07-13] MEDS ORDERED: Sodium Chloride 0.9% 1,000 ML IV SCH ×2 (06:00→09:41)
[2021-07-13] MEDS ORDERED: Heparin 10,000 UNITS/ 10 ML VIAL ONE (06:29)
[2021-07-13] MEDS ORDERED: Lidocaine 1% (PF) 30 ML VIAL ONE (06:29)
[2021-07-13] MEDS: Budesonide 0.5 MG/2 ML NEB NEB SCH ×2 (06:39→18:37)
[2021-07-13] MEDS ORDERED: Midazolam HCl 2 mg/2 ml Vial ONE (07:06)
[2021-07-13] MEDS ORDERED: Fentanyl 100 MCG/2 ML VIAL ONE (07:06)
[2021-07-13] MEDS ORDERED: Protamine Sulfate 50 MG/5 ML VIAL ONE (07:49)
[2021-07-13] MEDS ORDERED: Clopidogrel Bisulfate 300 MG TAB ONE (08:10)
[2021-07-13] MEDS ORDERED: Bivalirudin 250 MG VIAL ONE (08:10)
[2021-07-13] MEDS ORDERED: Adenosine 6 MG/2 ML VIAL ONE (08:16)
[2021-07-13] MEDS ORDERED: Insulin Glargine 30 UNITS/0.3 ML VIAL SC SCH ×2 (09:00→21:00)
[2021-07-13] MEDS ORDERED: Morphine 2 MG/ML VIAL ONE ×2 (09:13→11:49)
[2021-07-13] MEDS ORDERED: Morphine 2 MG/ML VIAL SLOW IVP PRN (09:39)
[2021-07-13] MEDS ORDERED: Nitroglycerin 0.4 MG TAB (25 Tab Bottle) SL PRN (09:39)
[2021-07-13] MEDS ORDERED: Morphine 4 MG/ML VIAL SLOW IVP PRN (09:39)
[2021-07-13] MEDS ORDERED: Iopamidol 370 76% 50 ML VIAL FS ONE (10:21)
[2021-07-13] MEDS ORDERED: Iopamidol 370 76% 100 ML VIAL ONE (10:21)
[2021-07-13] MEDS: glipiZIDE 5 MG TAB PO SCH ×2 (10:42→17:15)
[2021-07-13] MEDS: Aspirin Chewable 81 MG TAB PO SCH (10:42)
[2021-07-13] MEDS: Clopidogrel Bisulfate 75 MG TAB PO SCH (10:42)
[2021-07-13] MEDS: Benzonatate 100 MG CAP PO SCH ×3 (10:42→20:09)
[2021-07-13] MEDS ORDERED: Carvedilol 3.125 MG TAB PO SCH (11:30)
[2021-07-13] MEDS: Doxycycline 100 MG CAP PO SCH ×2 (13:23→20:09)
[2021-07-13] MEDS: Sodium Bicarbonate Tab 325 MG TAB PO SCH ×2 (13:24→20:09)
[2021-07-13] MEDS: guaiFENesin ER 600 MG TAB PO SCH ×2 (13:24→20:09)
[2021-07-13] MEDS: HYDROcodone/Acetaminophen 5/325 mg Tablet PO PRN ×2 (13:39→20:09)
[2021-07-13] MEDS: Empagliflozin 10 MG TAB PO SCH (13:39)
[2021-07-13] MEDS ORDERED: Carvedilol 6.25 MG TAB PO SCH (17:00)
[2021-07-13] MEDS: HumaLOG 300 UNITS/3 ML VIAL SC PRN ×2 (17:15→20:12)
[2021-07-13] MEDS ORDERED: Carvedilol 25 MG TAB PO SCH (17:15)
[2021-07-13] MEDS: Atorvastatin Calcium 40 MG TAB PO SCH (20:09)
[2021-07-14] MEDS: HYDROcodone/Acetaminophen 5/325 mg Tablet PO PRN ×4 (02:36→21:09)
[2021-07-14 04:15] LABS: #Basophils 0.1 thou/uL (0.0-0.2); #Eosinphils 0.2 thou/uL (0.0-0.7); #Lymphocytes 1.8 thou/uL (1.20-3.40); #Monocytes 0.9 thou/uL (0.11-0.59); #Neutrophils 6.4 thou/uL (1.40-6.50); %Basophils 0.6 % (0.0-1.0); %Eosinophils 2.3 % (0.0-10.0); %Lymphocytes 19.3 % (21.0-51.0); %Monocytes 9.6 % (0.0-10.0); %Neutrophils 68.2 % (42.0-75.0); Mean Corpuscular HGB CONC 33.6 g/dL (32.0-36.0); Mean Corpuscular Hemoglobin 30.1 pg (27.0-31.0); Mean Corpuscular Volume 89.7 fL (78.0-98.0); Mean Platelet Volume 8.2 fL (7.4-10.4); Platelet Count 240 thou/uL (130-400); RBC Distribution Width 12.2 % (11.5-14.5); Red Blood Cell (RBC) Count 4.31 mill/uL (4.70-6.10); White Blood Cell (WBC) Count 9.4 thou/uL (4.8-10.8)
[2021-07-14 04:36] LABS: ALT (SGPT) 10 U/L (8-55); AST (SGOT) 8 U/L (5-34); Albumin 3.5 g/dL (3.4-4.8); Alkaline Phosphatase 79 U/L (40-110); Anion Gap 13 mmol/L (10-20); BUN (Urea Nitrogen) 31 mg/dL (8.4-25.7); Bilirubin, Total 0.2 mg/dL (0.2-1.2); Calc. Creatinine Clearance 56 mL/min (70-130); Calcium 8.8 mg/dL (7.8-10.44); Carbon Dioxide 23 mmol/L (23-31); Chloride 101 mmol/L (98-107); Globulin 2.4 g/dL (2.4-3.5); Glucose 395 mg/dL (80-115); Potassium 4.6 mmol/L (3.5-5.1); Protein, Total 5.9 g/dL (5.8-8.1); Sodium 132 mmol/L (136-145)
[2021-07-14] MEDS: HumaLOG 300 UNITS/3 ML VIAL SC PRN ×3 (05:38→18:10)
[2021-07-14] MEDS: Budesonide 0.5 MG/2 ML NEB NEB SCH ×2 (07:34→18:40)
[2021-07-14] MEDS ORDERED: Carvedilol 3.125 MG TAB PO SCH (08:00)
[2021-07-14] MEDS: Sodium Chloride 0.9% 1,000 ML IV SCH ×2 (08:28→15:29)
[2021-07-14] MEDS: Carvedilol 25 MG TAB PO SCH ×2 (08:29→17:15)
[2021-07-14] MEDS: Ezetimibe 10 MG TAB PO SCH (08:29)
[2021-07-14] MEDS: Doxycycline 100 MG CAP PO SCH ×2 (08:29→20:56)
[2021-07-14] MEDS: Clopidogrel Bisulfate 75 MG TAB PO SCH (08:29)
[2021-07-14] MEDS: Benzonatate 100 MG CAP PO SCH ×3 (08:29→20:57)
[2021-07-14] MEDS: glipiZIDE 5 MG TAB PO SCH ×2 (08:29→17:15)
[2021-07-14] MEDS: Aspirin Chewable 81 MG TAB PO SCH (08:29)
[2021-07-14] MEDS: guaiFENesin ER 600 MG TAB PO SCH ×2 (08:29→20:57)
[2021-07-14] MEDS: Sodium Bicarbonate Tab 325 MG TAB PO SCH ×2 (08:29→20:56)
[2021-07-14] MEDS ORDERED: Insulin Glargine 30 UNITS/0.3 ML VIAL SC SCH ×2 (09:00→21:00)
[2021-07-14] MEDS: hydrALAZINE 25 MG TAB PO SCH ×3 (09:45→20:56)
[2021-07-14] MEDS: Atorvastatin Calcium 40 MG TAB PO SCH (20:56)
[2021-07-14] MEDS: busPIRone HCl 5 MG TAB PO PRN (21:09)
[2021-07-15] MEDS: Sodium Chloride 0.9% 1,000 ML IV SCH ×2 (03:30→09:00)
[2021-07-15 05:01] LABS: Anion Gap 12 mmol/L (10-20); BUN (Urea Nitrogen) 27 mg/dL (8.4-25.7); Calc. Creatinine Clearance 74 mL/min (70-130); Calcium 8.9 mg/dL (7.8-10.44); Carbon Dioxide 26 mmol/L (23-31); Chloride 103 mmol/L (98-107); Glucose 154 mg/dL (80-115); Potassium 4.6 mmol/L (3.5-5.1); Sodium 136 mmol/L (136-145)
[2021-07-15] MEDS: Budesonide 0.5 MG/2 ML NEB NEB SCH (07:19)
[2021-07-15] MEDS: Doxycycline 100 MG CAP PO SCH (09:02)
[2021-07-15] MEDS: Benzonatate 100 MG CAP PO SCH (09:02)
[2021-07-15] MEDS: Aspirin Chewable 81 MG TAB PO SCH (09:03)
[2021-07-15] MEDS: Sodium Bicarbonate Tab 325 MG TAB PO SCH (09:03)
[2021-07-15] MEDS: glipiZIDE 5 MG TAB PO SCH (09:04)
[2021-07-15] MEDS: Ezetimibe 10 MG TAB PO SCH (09:04)
[2021-07-15] MEDS: Carvedilol 25 MG TAB PO SCH (09:05)
[2021-07-15] MEDS: hydrALAZINE 25 MG TAB PO SCH (09:06)
[2021-07-15] MEDS: Clopidogrel Bisulfate 75 MG TAB PO SCH (09:06)
[2021-07-15] MEDS: guaiFENesin ER 600 MG TAB PO SCH (09:07)
[2021-07-15 10:46] VITALS: BP 143/77; TEMP 98.6
[2021-07-15] MEDS ORDERED: Insulin Glargine 30 UNITS/0.3 ML VIAL SC SCH (21:00)
== END 2021-07-15 11:00 | disposition home or self-care (01) | DRG 249 ==
LOC: ERS 18:48 → 2NO 20:54
PROVIDERS: ADMIT Internal Medicine; ATTEND Internal Medicine
PROC: 02703EZ Dilation of Coronary Artery, One Artery with Two Intraluminal Devices, Percutaneous Approach (ICD-10-PCS; principal; 2021-07-13)
PROC: 02703ZZ Dilation of Coronary Artery, One Artery, Percutaneous Approach (ICD-10-PCS; 2021-07-13)
PROC: 4A023N7 Measurement of Cardiac Sampling and Pressure, Left Heart, Percutaneous Approach (ICD-10-PCS; 2021-07-13)
PROC: B2111ZZ Fluoroscopy of Multiple Coronary Arteries using Low Osmolar Contrast (ICD-10-PCS; 2021-07-13)
PROC: B2151ZZ Fluoroscopy of Left Heart using Low Osmolar Contrast (ICD-10-PCS; 2021-07-13)
PROC: B2131ZZ Fluoroscopy of Multiple Coronary Artery Bypass Grafts using Low Osmolar Contrast (ICD-10-PCS; 2021-07-13)
PROC: B2181ZZ Fluoroscopy of Left Internal Mammary Bypass Graft using Low Osmolar Contrast (ICD-10-PCS; 2021-07-13)
DX: I25.110 Atherosclerotic heart disease of native coronary artery with unstable angina pectoris (principal); N17.9 Acute kidney failure, unspecified; E87.2 Acidosis; Z20.822 Contact with and (suspected) exposure to COVID-19; N18.30 Chronic kidney disease, stage 3 unspecified; E11.65 Type 2 diabetes mellitus with hyperglycemia; E11.22 Type 2 diabetes mellitus with diabetic chronic kidney disease; J20.9 Acute bronchitis, unspecified; I12.9 Hypertensive chronic kidney disease with stage 1 through stage 4 chronic kidney disease, or unspecified chronic kidney disease; E78.5 Hyperlipidemia, unspecified; E83.42 Hypomagnesemia; G89.4 Chronic pain syndrome; D63.1 Anemia in chronic kidney disease; M54.9 Dorsalgia, unspecified; J43.9 Emphysema, unspecified; F17.210 Nicotine dependence, cigarettes, uncomplicated; F31.9 Bipolar disorder, unspecified; F90.9 Attention-deficit hyperactivity disorder, unspecified type; E78.00 Pure hypercholesterolemia, unspecified; Z88.5 Allergy status to narcotic agent; Z28.310 Unvaccinated for COVID-19; Z88.8 Allergy status to other drugs, medicaments and biological substances; Z91.11 Patient's noncompliance with dietary regimen; Z95.1 Presence of aortocoronary bypass graft; Z79.899 Other long term (current) drug therapy; Z79.82 Long term (current) use of aspirin; Z79.02 Long term (current) use of antithrombotics/antiplatelets; Z71.6 Tobacco abuse counseling; I25.2 Old myocardial infarction; Z79.84 Long term (current) use of oral hypoglycemic drugs; Z79.890 Hormone replacement therapy; Z79.52 Long term (current) use of systemic steroids; Z90.49 Acquired absence of other specified parts of digestive tract; Z95.5 Presence of coronary angioplasty implant and graft
CPT/HCPCS: 36415; 36416; 71045; 78452; 80048; 80053; 80061; 80069; 81003; 81015; 82570; 82805; 83690; 83735; 84156; 84300; 84484; 84540; 85025; 85347; 85610; 85730; 92920; 92928; 92937; 93005; 93010; 93017; 93459; 94640; 94760; 96374; 97139; 99152; 99153; A9500; C1725; C1876; C9600; J0153; J0583; J0696; J1644; J1650; J1815; J2001; J2250; J2270; J2720; J2785; J3010; J3475; J3490; J7050; J7620; J7626; Q9967; U0002

== ENCOUNTER 2022-01-10 08:54 | Observation (INO) | payer BC ==
[2022-01-10 09:20] LABS: #Eosinphils 0.3 thou/uL (0.0-0.7); #Lymphocytes 1.4 thou/uL (1.20-3.40); #Monocytes 0.8 thou/uL (0.11-0.59); #Neutrophils 8.4 thou/uL (1.40-6.50); %Basophils 0.3 % (0.0-1.0); %Eosinophils 2.4 % (0.0-10.0); %Lymphocytes 12.7 % (21.0-51.0); %Monocytes 7.3 % (0.0-10.0); %Neutrophils 77.4 % (42.0-75.0); Hemoglobin 14.3 g/dL (14.0-18.0); Mean Corpuscular HGB CONC 31.8 g/dL (32.0-36.0); Mean Corpuscular Hemoglobin 28.3 pg (27.0-31.0); Mean Corpuscular Volume 88.9 fl (78.0-98.0); Mean Platelet Volume 9.4 fL (7.4-10.4); Platelet Count 232 thou/uL (130-400); Red Blood Cell (RBC) Count 5.06 mill/uL (4.70-6.10); White Blood Cell (WBC) Count 10.9 thou/uL (4.8-10.8)
[2022-01-10 09:45] LABS: ALT (SGPT) 18 U/L (8-55); AST (SGOT) 15 U/L (5-34); Albumin 4.1 g/dL (3.4-4.8); Alkaline Phosphatase 81 U/L (40-110); Anion Gap 12 mmol/L (10-20); BUN (Urea Nitrogen) 28 mg/dL (8.4-25.7); Bilirubin, Total 0.3 mg/dL (0.2-1.2); Calc. Creatinine Clearance 0 mL/min (70-130); Calcium 9.6 mg/dL (7.8-10.44); Carbon Dioxide 24 mmol/L (23-31); Chloride 103 mmol/L (98-107); Estimated GFR 44; Globulin 3.1 g/dL (2.4-3.5); Glucose 180 mg/dL (80-115); Lipase 39 U/L (8-78); Potassium 4.7 mmol/L (3.5-5.1); Protein, Total 7.2 g/dL (5.8-8.1); Sodium 134 mmol/L (136-145)
[2022-01-10] MEDS ORDERED: Iopamidol-370 76% 500 ML 1 ML ONE (10:47)
[2022-01-10] MEDS ORDERED: Acetaminophen 500 MG TAB ONE (12:11)
[2022-01-10] MEDS ORDERED: Aspirin Chewable 81 MG TAB ONE (12:11)
[2022-01-10] MEDS ORDERED: Nitroglycerin 2% Ointment 1 INCH/1 GM Packet ONE (12:11)
[2022-01-10 13:42] LABS: Troponin I Less than 0.010 ng/mL (< 0.028)
[2022-01-10] MEDS ORDERED: Nitroglycerin 0.4 MG TAB (25 Tab Bottle) SL PRN (13:56)
[2022-01-10] MEDS ORDERED: hydrALAZINE 20 MG/ML VIAL SLOW IVP PRN (13:57)
[2022-01-10] MEDS ORDERED: Electrolyte Replacement Protocol 1 EACH FS SCH (14:00)
[2022-01-10 14:27] LABS: Hemoglobin A1c 6.9 % (4.0-6.0)
[2022-01-10] MEDS ORDERED: Electrolyte Replacement Protocol FS PRN (14:30)
[2022-01-10 15:58] LABS: Troponin I Less than 0.010 ng/mL (< 0.028)
[2022-01-10] MEDS ORDERED: Morphine 4 MG/ML VIAL ONE (16:11)
[2022-01-10] MEDS: Morphine 4 MG/ML VIAL SLOW IVP PRN ×2 (16:15→20:23)
[2022-01-10 20:32] VITALS: BMI 28.2
[2022-01-10] MEDS ORDERED: Atorvastatin Calcium 40 MG TAB PO SCH (21:00)
[2022-01-10] MEDS ORDERED: Albuterol 200 PUFF (6.7GM INHALER) INH PRN (22:39)
[2022-01-10] MEDS ORDERED: busPIRone HCl 5 MG TAB PO PRN (22:39)
[2022-01-11] MEDS: Morphine 4 MG/ML VIAL SLOW IVP PRN (00:39)
[2022-01-11 05:56] LABS: #Basophils 0.1 thou/uL (0.0-0.2); #Eosinphils 0.3 thou/uL (0.0-0.7); #Lymphocytes 1.5 thou/uL (1.20-3.40); #Monocytes 0.8 thou/uL (0.11-0.59); #Neutrophils 6.1 thou/uL (1.40-6.50); %Basophils 0.7 % (0.0-1.0); %Eosinophils 3.8 % (0.0-10.0); %Lymphocytes 16.8 % (21.0-51.0); %Monocytes 9.5 % (0.0-10.0); %Neutrophils 69.3 % (42.0-75.0); Hemoglobin 13.8 g/dL (14.0-18.0); Mean Corpuscular HGB CONC 32.4 g/dL (32.0-36.0); Mean Corpuscular Hemoglobin 28.8 pg (27.0-31.0); Mean Corpuscular Volume 88.7 fl (78.0-98.0); Mean Platelet Volume 9.5 fL (7.4-10.4); Platelet Count 198 thou/uL (130-400); RBC Distribution Width 13.9 % (11.5-14.5); Red Blood Cell (RBC) Count 4.81 mill/uL (4.70-6.10); White Blood Cell (WBC) Count 8.8 thou/uL (4.8-10.8)
[2022-01-11] MEDS ORDERED: Mometasone 200 MCG/Formoterol 5 MCG 120 PUFF INHALER INH SCH (06:30)
[2022-01-11 06:44] LABS: Anion Gap 11 mmol/L (10-20); BUN (Urea Nitrogen) 27 mg/dL (8.4-25.7); Calc. Creatinine Clearance 66 mL/min (70-130); Calcium 9.3 mg/dL (7.8-10.44); Carbon Dioxide 23 mmol/L (23-31); Chloride 102 mmol/L (98-107); Estimated GFR 52; Glucose 254 mg/dL (80-115); Potassium 4.6 mmol/L (3.5-5.1); Sodium 131 mmol/L (136-145)
[2022-01-11 06:45] LABS: Phosphorus 4.1 mg/dL (2.3-4.7)
[2022-01-11] MEDS ORDERED: Magnesium 2 GM/50 ML(in water) 2 GM in Premix Bag 1 BAG IVPB SCH (08:00)
[2022-01-11] MEDS ORDERED: Carvedilol 25 MG TAB PO SCH (08:00)
[2022-01-11] MEDS ORDERED: Enoxaparin Sodium 40 MG/0.4 ML SYRINGE SC SCH (09:00)
[2022-01-11] MEDS ORDERED: hydrALAZINE 25 MG TAB PO SCH (09:00)
[2022-01-11] MEDS ORDERED: Aspirin Chewable 81 MG TAB PO SCH (09:00)
[2022-01-12 02:36] VITALS: BP 124/70
[2022-01-12 02:42] VITALS: TEMP 97.8
== END 2022-01-11 14:43 | disposition home or self-care (01) ==
LOC: ERS 08:54 → ERHOLD 12:22 → 2SW 19:35
PROVIDERS: ADMIT Internal Medicine; ATTEND Internal Medicine
DX: R07.89 Other chest pain (principal); I25.10 Atherosclerotic heart disease of native coronary artery without angina pectoris; R20.2 Paresthesia of skin; F17.210 Nicotine dependence, cigarettes, uncomplicated; I13.0 Hypertensive heart and chronic kidney disease with heart failure and stage 1 through stage 4 chronic kidney disease, or unspecified chronic kidney disease; E11.22 Type 2 diabetes mellitus with diabetic chronic kidney disease; N18.30 Chronic kidney disease, stage 3 unspecified; I50.32 Chronic diastolic (congestive) heart failure; N17.9 Acute kidney failure, unspecified; E78.5 Hyperlipidemia, unspecified; I25.2 Old myocardial infarction; J43.9 Emphysema, unspecified; G89.29 Other chronic pain; M54.9 Dorsalgia, unspecified; M19.09 Primary osteoarthritis, other specified site; Z86.73 Personal history of transient ischemic attack (TIA), and cerebral infarction without residual deficits; Z91.14 Patient's other noncompliance with medication regimen; Z79.02 Long term (current) use of antithrombotics/antiplatelets; Z79.82 Long term (current) use of aspirin; Z79.84 Long term (current) use of oral hypoglycemic drugs; Z79.899 Other long term (current) drug therapy; Z88.5 Allergy status to narcotic agent; Z88.8 Allergy status to other drugs, medicaments and biological substances; Z95.1 Presence of aortocoronary bypass graft; Z95.5 Presence of coronary angioplasty implant and graft; Z20.822 Contact with and (suspected) exposure to COVID-19
CPT/HCPCS: 36415; 36416; 70450; 70551; 71045; 71275; 80048; 80053; 83036; 83690; 83735; 84100; 84443; 84484; 85025; 85379; 93005; 94760; 96365; 96372; 96375; G0378; J1650; J2270; J3475; Q9967; U0003; U0005

== ENCOUNTER 2023-02-04 18:57 | Emergency (ER) | payer BC, OTHER ==
[2023-02-04] MEDS ORDERED: Ibuprofen 200 MG TAB ONE (20:17)
== END 2023-02-04 22:15 | disposition home or self-care (01) ==
LOC: ERS 18:57
DX: M54.50 Low back pain, unspecified (principal); M54.2 Cervicalgia; E11.9 Type 2 diabetes mellitus without complications; F17.210 Nicotine dependence, cigarettes, uncomplicated; I10 Essential (primary) hypertension; E78.00 Pure hypercholesterolemia, unspecified; Z79.84 Long term (current) use of oral hypoglycemic drugs; Z79.899 Other long term (current) drug therapy; Z79.82 Long term (current) use of aspirin
CPT/HCPCS: 70450; 72125; 72131

== ENCOUNTER 2023-03-04 11:14 | Emergency (ER) | payer BC, OTHER ==
[~2023-03-04 11:14] MED LIST changes: -Iopamidol-370 76% 500 ML 1 ML ONE; +Iopamidol-370 76% 500 ML MDV (1 ML CHARGE) ONE
[2023-03-04] MEDS ORDERED: Ondansetron PF 4 MG/2 ML Vial ONE (12:17)
[2023-03-04] MEDS ORDERED: Morphine 2 MG/ML VIAL ONE (12:17)
[2023-03-04] MEDS ORDERED: Dexamethasone 10 MG/ML VIAL ONE (13:00)
== END 2023-03-04 13:02 | disposition home or self-care (01) ==
LOC: ERS 11:14
DX: M54.50 Low back pain, unspecified (principal); F17.210 Nicotine dependence, cigarettes, uncomplicated; E11.9 Type 2 diabetes mellitus without complications; I10 Essential (primary) hypertension; J43.9 Emphysema, unspecified; V49.40XA Driver injured in collision with unspecified motor vehicles in traffic accident, initial encounter
CPT/HCPCS: 70450; 71260; 72125; 74177; 96374; 96375; J1100; J2272; J2405; Q9967

== ENCOUNTER 2023-03-31 16:55 | Observation (INO) | payer BC, OTHER ==
[2023-03-31 17:49] LABS: Red Blood Cell (RBC) Count 4.76 mill/uL (4.70-6.10); White Blood Cell (WBC) Count 8.6 10x3/uL (4.8-10.8)
[2023-03-31 17:50] LABS: #Basophils 0.1 thou/uL (0.0-0.2); #Eosinphils 0.3 thou/uL (0.0-0.7); #Monocytes 0.7 thou/uL (0.11-0.59); #Neutrophils 5.7 thou/uL (1.40-6.50); %Basophils 0.6 % (0.0-1.0); %Eosinophils 3.4 % (0.0-10.0); %Monocytes 7.9 % (0.0-10.0); %Neutrophils 65.9 % (42.0-75.0); Hematocrit 41.8 % (42.0-52.0); Hemoglobin 13.9 g/dL (14.0-18.0); Mean Corpuscular HGB CONC 33.3 g/dL (32.0-36.0); Mean Corpuscular Hemoglobin 29.2 pg (27.0-31.0); Mean Corpuscular Volume 87.8 fl (78.0-98.0); Mean Platelet Volume 10.8 fL (7.4-10.4); Platelet Count 227 10x3/uL (130-400); RBC Distribution Width 12.7 % (11.5-14.5)
[2023-03-31 18:14] LABS: ALT (SGPT) 12 U/L (8-55); AST (SGOT) 12 U/L (5-34); Alkaline Phosphatase 80 U/L (40-110); Anion Gap 14 mmol/L (10-20); BUN (Urea Nitrogen) 17 mg/dL (8.4-25.7); Bilirubin, Total 0.2 mg/dL (0.2-1.2); Calc. Creatinine Clearance 0 mL/min (70-130); Calcium 8.9 mg/dL (7.8-10.44); Carbon Dioxide 21 mmol/L (23-31); Chloride 107 mmol/L (98-107); Estimated GFR 56; Globulin 2.4 g/dL (2.4-3.5); Glucose 185 mg/dL (80-115); Potassium 4.1 mmol/L (3.5-5.1); Protein, Total 6.4 g/dL (5.8-8.1); Sodium 138 mmol/L (136-145)
[2023-03-31 18:17] LABS: Troponin I Less than 0.010 ng/mL (< 0.028)
[2023-03-31] MEDS ORDERED: hydrALAZINE 20 MG/ML VIAL ONE (19:05)
[2023-03-31] MEDS ORDERED: Acetaminophen 650 MG Suppository PR PRN (20:23)
[2023-03-31] MEDS ORDERED: Dextrose 50% Abboject 50 ML SYRINGE SLOW IVP PRN (20:23)
[2023-03-31] MEDS ORDERED: Ondansetron PF 4 MG/2 ML Vial IVP PRN (20:23)
[2023-03-31] MEDS ORDERED: Glucagon 1 MG/ML KIT IM PRN (20:23)
[2023-03-31] MEDS ORDERED: Dextrose 5% in Water 1,000 ML IV PRN (20:23)
[2023-03-31] MEDS ORDERED: HumaLOG 300 UNITS/3 ML VIAL SC PRN ×2 (20:23)
[2023-03-31] MEDS ORDERED: Acetaminophen 325 MG TAB PO PRN (20:23)
[2023-03-31] MEDS ORDERED: Ondansetron ODT 4 MG TAB PO PRN (20:23)
[2023-03-31] MEDS ORDERED: hydrALAZINE 20 MG/ML VIAL SLOW IVP PRN (20:29)
[2023-03-31] MEDS ORDERED: Morphine 4 MG/ML VIAL ONE (20:34)
[2023-03-31] MEDS ORDERED: Enoxaparin 100 MG (1 mL) SYRINGE SC SCH (20:45)
[2023-03-31] MEDS ORDERED: Enoxaparin 100 MG (1 mL) SYRINGE ONE (22:53)
[2023-03-31] MEDS ORDERED: Aspirin 325 mg Enteric Coated Tablet PO SCH (23:01)
[2023-03-31 23:17] LABS: Troponin I Less than 0.010 ng/mL (< 0.028)
[2023-03-31] MEDS ORDERED: Ipratropium/Albuterol 3 ML NEB NEB PRN (23:29)
[2023-03-31] MEDS ORDERED: HumaLOG 300 UNITS/3 ML VIAL ONE (23:30)
[2023-04-01 00:09] VITALS: BMI 27.3
[2023-04-01] MEDS ORDERED: hydrALAZINE 20 MG/ML VIAL SLOW IVP PRN (00:12)
[2023-04-01] MEDS ORDERED: Lisinopril 5 MG TAB PO SCH (00:20)
[2023-04-01] MEDS ORDERED: Amlodipine 5 MG TAB PO SCH ×2 (00:30→18:00)
[2023-04-01] MEDS ORDERED: Morphine 4 MG/ML VIAL ONE (00:35)
[2023-04-01] MEDS ORDERED: Lisinopril 5 MG TAB ONE (00:35)
[2023-04-01] MEDS ORDERED: Aspirin Chewable 81 MG TAB ONE (00:37)
[2023-04-01] MEDS: Morphine 4 MG/ML VIAL SLOW IVP PRN ×2 (00:41→10:46)
[2023-04-01] MEDS ORDERED: Lorazepam 1 MG TAB PO PRN (00:49)
[2023-04-01] MEDS ORDERED: Aspirin Chewable 81 MG TAB PO SCH ×2 (01:00→09:00)
[2023-04-01 03:20] LABS: #Basophils 0.1 thou/uL (0.0-0.2); #Eosinphils 0.3 thou/uL (0.0-0.7); #Monocytes 0.8 thou/uL (0.11-0.59); #Neutrophils 4.8 thou/uL (1.40-6.50); %Basophils 0.9 % (0.0-1.0); %Eosinophils 3.7 % (0.0-10.0); %Lymphocytes 24.3 % (21.0-51.0); %Monocytes 9.7 % (0.0-10.0); %Neutrophils 61.1 % (42.0-75.0); Hematocrit 41.2 % (42.0-52.0); Hemoglobin 13.8 g/dL (14.0-18.0); Mean Corpuscular HGB CONC 33.5 g/dL (32.0-36.0); Mean Corpuscular Hemoglobin 29.3 pg (27.0-31.0); Mean Corpuscular Volume 87.5 fl (78.0-98.0); Mean Platelet Volume 10.8 fL (7.4-10.4); Platelet Count 213 10x3/uL (130-400); RBC Distribution Width 12.7 % (11.5-14.5); Red Blood Cell (RBC) Count 4.71 mill/uL (4.70-6.10); White Blood Cell (WBC) Count 7.9 10x3/uL (4.8-10.8)
[2023-04-01 03:44] LABS: Anion Gap 12 mmol/L (10-20); BUN (Urea Nitrogen) 15 mg/dL (8.4-25.7); Calc. Creatinine Clearance 77 mL/min (70-130); Calcium 8.6 mg/dL (7.8-10.44); Carbon Dioxide 21 mmol/L (23-31); Chloride 108 mmol/L (98-107); Estimated GFR 66; Glucose 152 mg/dL (80-115); Potassium 3.6 mmol/L (3.5-5.1); Sodium 137 mmol/L (136-145)
[2023-04-01 03:47] LABS: Troponin I 0.012 ng/mL (< 0.028)
[2023-04-01] MEDS ORDERED: Enoxaparin 100 MG (1 mL) SYRINGE SC SCH (09:00)
[2023-04-01 10:21] VITALS: BP 124/69; TEMP 98.3
[2023-04-01] MEDS ORDERED: Regadenoson 0.4 MG/5 ML SYRINGE ONE (11:51)
[2023-04-01] MEDS ORDERED: Atorvastatin Calcium 40 MG TAB PO SCH (17:00)
[2023-04-01] MEDS ORDERED: Ranolazine 500 MG ER.TAB PO SCH (17:00)
== END 2023-04-01 17:08 | disposition home or self-care (01) ==
LOC: ERS 16:55 → ERHOLD 19:32 → 2NO 04-01 02:01
PROVIDERS: ADMIT Student in an Organized Health Care Education/Training Program; ATTEND Internal Medicine
DX: R07.9 Chest pain, unspecified (principal); I16.0 Hypertensive urgency; I13.0 Hypertensive heart and chronic kidney disease with heart failure and stage 1 through stage 4 chronic kidney disease, or unspecified chronic kidney disease; E11.22 Type 2 diabetes mellitus with diabetic chronic kidney disease; I50.42 Chronic combined systolic (congestive) and diastolic (congestive) heart failure; N18.9 Chronic kidney disease, unspecified; I25.10 Atherosclerotic heart disease of native coronary artery without angina pectoris; J43.9 Emphysema, unspecified; E78.5 Hyperlipidemia, unspecified; F17.210 Nicotine dependence, cigarettes, uncomplicated; Z95.1 Presence of aortocoronary bypass graft; Z79.82 Long term (current) use of aspirin; Z79.85 Long-term (current) use of injectable non-insulin antidiabetic drugs; Z79.84 Long term (current) use of oral hypoglycemic drugs; Z79.899 Other long term (current) drug therapy; Z79.51 Long term (current) use of inhaled steroids; Z88.5 Allergy status to narcotic agent; Z88.8 Allergy status to other drugs, medicaments and biological substances; Z90.89 Acquired absence of other organs; Z79.4 Long term (current) use of insulin
CPT/HCPCS: 36415; 36416; 71046; 78452; 80048; 80053; 83880; 84484; 85025; 93005; 93017; 94760; 96372; 96376; A9502; G0378; J0360; J1650; J1815; J2270; J2785

== ENCOUNTER 2023-10-25 20:27 | Observation (INO) | payer BC ==
[2023-10-25 21:00] LABS: #Basophils 0.06 10x3/uL (0.0-0.2); %Basophils 0.6 % (0.0-1.0); %Eosinophils 2.3 % (0.0-10.0); %Lymphocytes 12.1 % (21.0-51.0); %Monocytes 10.1 % (0.0-10.0); %Neutrophils 74.3 % (42.0-75.0); Mean Corpuscular HGB CONC 33.3 g/dL (32.0-36.0); Mean Corpuscular Volume 83.9 fL (78.0-98.0); Mean Platelet Volume 10.4 fL (7.4-10.4); Platelet Count 299 10x3/uL (130-400); RBC Distribution Width 13.1 % (11.5-14.5); Red Blood Cell (RBC) Count 4.65 mill/uL (4.70-6.10)
[2023-10-25 21:17] LABS: ALT (SGPT) 37 U/L (8-55); AST (SGOT) 30 U/L (5-34); Albumin 2.5 g/dL (3.4-4.8); Alkaline Phosphatase 107 U/L (40-110); Anion Gap 13 mmol/L (10-20); BUN (Urea Nitrogen) 34 mg/dL (8.4-25.7); Bilirubin, Total 0.3 mg/dL (0.2-1.2); Calc. Creatinine Clearance 0 mL/min (70-130); Calcium 9.5 mg/dL (7.8-10.44); Carbon Dioxide 26 mmol/L (23-31); Chloride 101 mmol/L (98-107); Estimated GFR 56; Globulin 4.4 g/dL (2.4-3.5); Glucose 184 mg/dL (80-115); Lipase 24 U/L (8-78); Potassium 5.4 mmol/L (3.5-5.1); Protein, Total 6.9 g/dL (5.8-8.1); Sodium 135 mmol/L (136-145)
[2023-10-25] MEDS ORDERED: Morphine 2 MG/ML VIAL ONE (21:19)
[2023-10-25] MEDS ORDERED: Metoclopramide HCl 10 MG (2 mL) VIAL ONE (21:20)
[2023-10-25] MEDS ORDERED: diphenhydrAMINE 50 MG/ML VIAL ONE (21:20)
[2023-10-26] MEDS: GoLYTELY 4,000 ml Bottle PO SCH (00:54)
[2023-10-26] MEDS ORDERED: Diazepam 5 MG TAB PO PRN (01:06)
[2023-10-26] MEDS ORDERED: Insulin Lispro 100 UNIT/ML 10 ML VIAL SC PRN ×2 (01:07)
[2023-10-26] MEDS ORDERED: Dextrose 5% in Water 1,000 ML IV PRN (01:07)
[2023-10-26] MEDS ORDERED: Glucagon 1 MG/ML KIT IM PRN (01:07)
[2023-10-26] MEDS ORDERED: Dextrose 50% Abboject 50 ML SYRINGE SLOW IVP PRN (01:07)
[2023-10-26] MEDS ORDERED: Ketorolac Tromethamine 30 MG (1 mL) VIAL ONE (01:30)
[2023-10-26] MEDS ORDERED: Ondansetron PF 4 MG/2 ML Vial ONE (01:30)
[2023-10-26] MEDS: Ondansetron PF 4 MG/2 ML Vial IVP PRN (01:39)
[2023-10-26] MEDS: Ketorolac Tromethamine 30 MG (1 mL) VIAL IVP PRN (01:39)
[2023-10-26 02:10] VITALS: BMI 27.5
[2023-10-26] MEDS: Albumin 25% 25 GM (100 mL) BOT IVPB SCH (02:31)
[2023-10-26 04:43] LABS: #Basophils 0.04 10x3/uL (0.0-0.2); %Basophils 0.5 % (0.0-1.0); %Eosinophils 2.6 % (0.0-10.0); %Lymphocytes 15.9 % (21.0-51.0); %Monocytes 11.9 % (0.0-10.0); %Neutrophils 68.5 % (42.0-75.0); Hematocrit 35.6 % (42.0-52.0); Hemoglobin 11.7 g/dL (14.0-18.0); Mean Corpuscular HGB CONC 32.9 g/dL (32.0-36.0); Mean Corpuscular Volume 85.2 fL (78.0-98.0); Mean Platelet Volume 10.9 fL (7.4-10.4); Platelet Count 267 10x3/uL (130-400); Red Blood Cell (RBC) Count 4.18 mill/uL (4.70-6.10)
[2023-10-26 04:59] LABS: Anion Gap 12 mmol/L (10-20); BUN (Urea Nitrogen) 30 mg/dL (8.4-25.7); Calc. Creatinine Clearance 75 mL/min (70-130); Calcium 8.8 mg/dL (7.8-10.44); Carbon Dioxide 25 mmol/L (23-31); Chloride 104 mmol/L (98-107); Estimated GFR 64; Glucose 153 mg/dL (80-115); Potassium 5.3 mmol/L (3.5-5.1); Sodium 136 mmol/L (136-145)
[2023-10-26] MEDS: Sodium Chloride 0.9% 1,000 ML IV SCH (06:22)
[2023-10-26] MEDS: Amlodipine 10 MG TAB PO SCH (10:04)
[2023-10-26] MEDS: Naloxegol 12.5 MG TAB PO SCH (10:08)
[2023-10-26] MEDS: Polyethylene Glycol 3350 17 GM Packet PO SCH (10:09)
[2023-10-26] MEDS: Senokot S 8.6-50 MG TAB PO SCH (10:09)
[2023-10-26 10:10] VITALS: BP 169/74
[2023-10-26 10:52] LABS: Bacteria/HPF None Seen HPF (None Seen); Bilirubin Negative (Negative); Blood, Urine Negative (Negative); CAUTI Indications for Culture Dysuria,urgency,freq; Clarity Clear (Clear); Glucose, Urine (Dipstick) >=1000 mg/dL (Negative); Ketone, Urine Negative (Negative); Leukocyte Negative Leu/uL (Negative); Nitrite Negative (Negative); Protein, Urine (Dipstick) 100 mg/dL (Neg-Trace); RBC/HPF None Seen HPF (0-3); Specific Gravity, Urine 1.013 (1.002-1.036); Squamous Epithelial None Seen HPF (0-3); Urobilinogen Normal mg/dL (Less than 2); WBC/HPF 0-3 HPF (0-3)
[2023-10-26 11:05] LABS: Urine Culture Reflex No No
[2023-10-26] MEDS: Acetaminophen 325 MG TAB PO PRN (12:11)
[2023-10-26] MEDS: Diazepam 5 MG TAB PO PRN (12:12)
[2023-10-26 13:43] VITALS: TEMP 97.9
[2023-10-26] MEDS ORDERED: Ranolazine ER 500 MG TAB PO SCH (15:00)
[2023-10-26] MEDS ORDERED: Atorvastatin Calcium 40 MG TAB PO SCH (17:00)
[2023-10-26] MEDS ORDERED: Aspirin 81 mg Enteric Coated Tablet PO SCH (18:00)
[2023-10-27] MEDS ORDERED: Amlodipine 5 MG TAB PO SCH (09:00)
== END 2023-10-26 15:42 | disposition home or self-care (01) ==
LOC: ERS 20:27 → ERHOLD 23:44 → INTOOBSV 23:44 → IMCU/EMU 10-26 02:07
PROVIDERS: ADMIT Internal Medicine; ATTEND Internal Medicine
DX: K59.00 Constipation, unspecified (principal); K59.03 Drug induced constipation; I25.10 Atherosclerotic heart disease of native coronary artery without angina pectoris; E78.5 Hyperlipidemia, unspecified; N18.31 Chronic kidney disease, stage 3a; E11.22 Type 2 diabetes mellitus with diabetic chronic kidney disease; M48.061 Spinal stenosis, lumbar region without neurogenic claudication; J43.9 Emphysema, unspecified; Z88.8 Allergy status to other drugs, medicaments and biological substances; Z79.51 Long term (current) use of inhaled steroids; Z79.82 Long term (current) use of aspirin; Z79.84 Long term (current) use of oral hypoglycemic drugs; Z79.899 Other long term (current) drug therapy; Z87.891 Personal history of nicotine dependence
CPT/HCPCS: 36415; 74018; 74177; 80048; 80053; 81001; 83605; 83690; 85025; 96374; 96375; 96376; G0378; J1200; J1885; J2272; J2405; J2765; J7030; Q9967

== ENCOUNTER 2024-02-03 19:26 | Emergency (ER) | payer BC ==
[2024-02-03 20:54] LABS: #Basophils 0.05 10x3/uL (0.0-0.2); %Basophils 0.5 % (0.0-1.0); %Eosinophils 2.7 % (0.0-10.0); %Lymphocytes 16.1 % (21.0-51.0); %Monocytes 7.2 % (0.0-10.0); %Neutrophils 73.1 % (42.0-75.0); Hematocrit 41.5 % (42.0-52.0); Hemoglobin 13.6 g/dL (14.0-18.0); Mean Corpuscular HGB CONC 32.8 g/dL (32.0-36.0); Mean Corpuscular Hemoglobin 27.2 pg (27.0-31.0); Mean Platelet Volume 10.8 fL (7.4-10.4); Platelet Count 269 10x3/uL (130-400)
[2024-02-03 21:14] LABS: ALT (SGPT) 13 U/L (8-55); AST (SGOT) 14 U/L (5-34); Albumin 2.9 g/dL (3.4-4.8); Alkaline Phosphatase 122 U/L (40-110); Anion Gap 14 mmol/L (10-20); BUN (Urea Nitrogen) 22 mg/dL (8.4-25.7); Bilirubin, Total 0.2 mg/dL (0.2-1.2); Calc. Creatinine Clearance 0 mL/min (70-130); Calcium 8.9 mg/dL (7.8-10.44); Carbon Dioxide 20 mmol/L (23-31); Chloride 106 mmol/L (98-107); Estimated GFR 42; Globulin 3.9 g/dL (2.4-3.5); Glucose 365 mg/dL (80-115); Potassium 4.4 mmol/L (3.5-5.1); Protein, Total 6.8 g/dL (5.8-8.1); Sodium 136 mmol/L (136-145)
[2024-02-03 21:19] LABS: Troponin I 0.011 ng/mL (< 0.028)
[2024-02-03] MEDS ORDERED: Aspirin Chewable 81 MG TAB ONE (21:55)
[2024-02-03] MEDS ORDERED: Ondansetron PF 4 MG/2 ML Vial ONE (22:41)
[2024-02-03] MEDS ORDERED: Morphine 4 MG/ML VIAL ONE (22:41)
[2024-02-03] MEDS ORDERED: Labetalol HCl 100 MG/20 ML VIAL ONE (23:12)
[2024-02-03 23:28] LABS: Troponin I 0.015 ng/mL (< 0.028)
[2024-02-04] MEDS ORDERED: HYDROmorphone 0.5 MG/0.5 ML SYRINGE ONE (00:06)
== END 2024-02-04 01:30 | disposition home or self-care (01) ==
LOC: ERS 19:26
DX: R07.89 Other chest pain (principal); M54.50 Low back pain, unspecified; I25.10 Atherosclerotic heart disease of native coronary artery without angina pectoris; I25.2 Old myocardial infarction; E11.9 Type 2 diabetes mellitus without complications; I10 Essential (primary) hypertension; Z95.1 Presence of aortocoronary bypass graft
CPT/HCPCS: 36415; 71045; 80053; 84484; 85025; 85379; 93005; 94760; 96374; 96375; J2272; J2405

== ENCOUNTER 2024-03-31 10:49 | Observation (INO) | payer BC ==
[2024-03-31] MEDS ORDERED: Iopamidol-370 76% 500 ML MDV (1 ML CHARGE) ONE (11:00)
[2024-03-31] MEDS ORDERED: Aspirin Chewable 81 MG TAB ONE ×2 (11:32→11:35)
[2024-03-31 11:59] LABS: #Basophils 0.04 10x3/uL (0.0-0.2); %Basophils 0.4 % (0.0-1.0); %Eosinophils 1.6 % (0.0-10.0); %Lymphocytes 14.4 % (21.0-51.0); %Monocytes 6.2 % (0.0-10.0); %Neutrophils 77.1 % (42.0-75.0); Hematocrit 41.6 % (42.0-52.0); Hemoglobin 13.3 g/dL (14.0-18.0); Mean Corpuscular Hemoglobin 27.4 pg (27.0-31.0); Mean Corpuscular Volume 85.8 fL (78.0-98.0); Mean Platelet Volume 10.8 fL (7.4-10.4); Platelet Count 235 10x3/uL (130-400); RBC Distribution Width 14.6 % (11.5-14.5); Red Blood Cell (RBC) Count 4.85 mill/uL (4.70-6.10)
[2024-03-31 12:20] LABS: ALT (SGPT) 16 U/L (Less than 45); AST (SGOT) 18 U/L (11-34); Albumin 2.8 g/dL (3.1-4.5); Alkaline Phosphatase 101 U/L (40-110); Anion Gap 12 mmol/L (10-20); BUN (Urea Nitrogen) 16 mg/dL (8.4-25.7); Bilirubin, Total 0.3 mg/dL (0.3-1.2); Calc. Creatinine Clearance 0 mL/min (70-130); Calcium 8.9 mg/dL (7.8-10.44); Carbon Dioxide 21 mmol/L (23-31); Chloride 107 mmol/L (98-107); Estimated GFR 48; Globulin 3.6 g/dL (2.4-3.5); Glucose 247 mg/dL (80-115); Potassium 4.9 mmol/L (3.5-5.1); Protein, Total 6.4 g/dL (5.8-8.1); Sodium 135 mmol/L (136-145)
[2024-03-31 12:25] LABS: Troponin I 0.018 ng/mL (< 0.028)
[2024-03-31] MEDS ORDERED: Ondansetron ODT 4 MG TAB ONE (12:46)
[2024-03-31] MEDS ORDERED: fentaNYL 50 mcg/mL 1 mL Vial ONE (13:39)
[2024-03-31 14:56] LABS: Magnesium 1.8 mg/dL (1.6-2.6)
[2024-03-31] MEDS ORDERED: tiZANidine HCl 4 MG TAB PO PRN (15:52)
[2024-03-31 16:02] VITALS: BMI 28.4
[2024-03-31] MEDS ORDERED: Albuterol 200 PUFF INH INH PRN (16:02)
[2024-03-31] MEDS ORDERED: Dextrose 50% Abboject 50 ML SYRINGE SLOW IVP PRN (16:06)
[2024-03-31] MEDS ORDERED: Calcium Carbonate 500 MG ChewTAB PO PRN (16:06)
[2024-03-31] MEDS ORDERED: Glucagon 1 MG/ML KIT IM PRN (16:06)
[2024-03-31] MEDS ORDERED: Senokot S 8.6-50 MG TAB PO PRN (16:06)
[2024-03-31] MEDS ORDERED: Acetaminophen 650 MG Suppository PR PRN (16:06)
[2024-03-31] MEDS ORDERED: Ondansetron ODT 4 MG TAB PO PRN (16:06)
[2024-03-31] MEDS ORDERED: Dextrose 5% in Water 1,000 ML IV PRN (16:06)
[2024-03-31] MEDS ORDERED: Acetaminophen 325 MG TAB PO PRN (16:06)
[2024-03-31] MEDS: HYDROcodone/Acetaminophen 7.5/325 mg Tablet PO PRN (16:21)
[2024-03-31] MEDS: Magnesium 2 GM/50 ML(in water) 2 GM in Premix 1 BAG IVPB SCH (16:22)
[2024-03-31] MEDS: Morphine 4 MG/ML VIAL SLOW IVP PRN (17:23)
[2024-03-31] MEDS: Mometasone 200 MCG/Formoterol 5 MCG 120 PUFF INHALER INH SCH (19:24)
[2024-03-31] MEDS: Atorvastatin Calcium 40 MG TAB PO SCH (20:11)
[2024-03-31] MEDS: Ranolazine ER 500 MG TAB PO SCH (20:11)
[2024-03-31] MEDS: Dapagliflozin Propanediol 10 MG TAB PO SCH (20:11)
[2024-03-31] MEDS: hydrALAZINE 25 MG TAB PO SCH (20:11)
[2024-03-31] MEDS: Gabapentin 300 MG CAP PO SCH (20:11)
[2024-03-31 20:28] LABS: Troponin I 0.011 ng/mL (< 0.028)
[2024-03-31] MEDS: Insulin Lispro 100 UNIT/ML 10 ML VIAL SC SCH (21:00)
[2024-03-31] MEDS: Ondansetron PF 4 MG/2 ML Vial IVP PRN (22:19)
[2024-03-31] MEDS: Insulin Lispro 100 UNIT/ML 10 ML VIAL SC PRN (23:01)
[2024-03-31 23:26] LABS: Troponin I 0.011 ng/mL (< 0.028)
[2024-04-01 06:55] LABS: #Basophils 0.06 10x3/uL (0.0-0.2); %Basophils 0.8 % (0.0-1.0); %Eosinophils 3.5 % (0.0-10.0); %Lymphocytes 21.2 % (21.0-51.0); %Monocytes 8.7 % (0.0-10.0); %Neutrophils 65.2 % (42.0-75.0); Hematocrit 34.9 % (42.0-52.0); Hemoglobin 11.1 g/dL (14.0-18.0); Mean Corpuscular HGB CONC 31.8 g/dL (32.0-36.0); Mean Corpuscular Volume 84.9 fL (78.0-98.0); Mean Platelet Volume 10.8 fL (7.4-10.4); Platelet Count 185 10x3/uL (130-400); RBC Distribution Width 14.4 % (11.5-14.5); Red Blood Cell (RBC) Count 4.11 mill/uL (4.70-6.10)
[2024-04-01 07:13] LABS: Anion Gap 9 mmol/L (10-20); BUN (Urea Nitrogen) 19 mg/dL (8.4-25.7); Calc. Creatinine Clearance 66 mL/min (70-130); Calcium 8.2 mg/dL (7.8-10.44); Carbon Dioxide 22 mmol/L (23-31); Chloride 106 mmol/L (98-107); Estimated GFR 53; Glucose 218 mg/dL (80-115); Potassium 4.5 mmol/L (3.5-5.1); Sodium 132 mmol/L (136-145)
[2024-04-01] MEDS: Pantoprazole 40 MG DR.TAB PO SCH (08:32)
[2024-04-01] MEDS: Enoxaparin 40 MG (0.4 mL) SYRINGE SC SCH (08:32)
[2024-04-01] MEDS: Aspirin 81 mg Enteric Coated Tablet PO SCH (08:32)
[2024-04-01] MEDS ORDERED: Non-Formulary Item 1 EACH (Hydralazine Hcl [Hydralazine Hcl] 50 MG Tablet) PO SCH (09:00)
[2024-04-01] MEDS ORDERED: Regadenoson 0.4 MG/5 ML SYRINGE ONE (12:14)
[2024-04-01 14:29] VITALS: TEMP 98.2
[2024-04-01] MEDS: Insulin Lispro 100 UNIT/ML 10 ML VIAL SC PRN (16:25)
[2024-04-01 16:37] VITALS: BP 173/78
== END 2024-04-01 17:28 | disposition home or self-care (01) ==
LOC: ERS 10:49 → ERHOLD 14:42 → OBS 15:41
PROVIDERS: ADMIT Internal Medicine; ATTEND Internal Medicine
DX: I25.10 Atherosclerotic heart disease of native coronary artery without angina pectoris (principal); E11.65 Type 2 diabetes mellitus with hyperglycemia; I10 Essential (primary) hypertension; R07.9 Chest pain, unspecified; E78.5 Hyperlipidemia, unspecified; I13.0 Hypertensive heart and chronic kidney disease with heart failure and stage 1 through stage 4 chronic kidney disease, or unspecified chronic kidney disease; N18.30 Chronic kidney disease, stage 3 unspecified; I50.9 Heart failure, unspecified; F31.9 Bipolar disorder, unspecified; F90.9 Attention-deficit hyperactivity disorder, unspecified type; J44.9 Chronic obstructive pulmonary disease, unspecified; M47.812 Spondylosis without myelopathy or radiculopathy, cervical region; M48.061 Spinal stenosis, lumbar region without neurogenic claudication; Z98.890 Other specified postprocedural states; Z90.49 Acquired absence of other specified parts of digestive tract; Z86.73 Personal history of transient ischemic attack (TIA), and cerebral infarction without residual deficits; Z79.84 Long term (current) use of oral hypoglycemic drugs; Z79.51 Long term (current) use of inhaled steroids; Z79.899 Other long term (current) drug therapy; F17.210 Nicotine dependence, cigarettes, uncomplicated; Z88.8 Allergy status to other drugs, medicaments and biological substances
CPT/HCPCS: 36415; 36416; 71045; 71275; 78452; 80048; 80053; 83735; 83880; 84484; 85025; 93005; 93017; 94760; 96372; 96374; 96375; 96376; A9502; G0378; J1650; J1815; J2270; J2405; J2785; J3010; J3475; Q0162; Q9967